=== PATIENT | male | born 1945 | race Caucasian/White ===

== ENCOUNTER → 2017-05-23 13:34 | Outpatient (CLI) | payer MEDICARE, SELFPAY ==
[2017-05-23 13:39] LABS: Mucous, Urine 0 SEEN /hpf (<or=2+)
[2017-05-23 14:09] LABS: Color, Urine Yellow (Yellow); Glucose, Dipstick Normal (Normal); Ketone-Dipstick Negative (Negative); Leukocyte Esterase-Dipstick 500 /ul (Negative); Nitrite-Dipstick Negative (Negative); Occult Blood-Urine Negative /ul (Negative); Protein-Dipstick Negative (Negative); Specific Gravity, Urine 1.015 (1.002-1.030); Urine Bilirubin Dipstick Negative (Negative); Urine Clarity Sl. Cloudy (Clear); Urine Urobilinogen Normal (Normal)
[2017-05-23 14:16] LABS: Absolute Neutrophil Count 5.6 X10^3/uL (2.0-7.7); Basophil# 0.03 X10^3/uL; Basophil% 0.3 % (0-1); Eosinophil# 0.23 X10^3/uL; Eosinophils% 2.6 % (0-5); Hematocrit 45.5 % (40-54); Hemoglobin 14.6 g/dl (13.0-16.5); Lymphocyte % 23.5 % (19-41); Mean Corp Hgb Conc 32.1 g/gl (32-36); Mean Corpuscular Hgb 27.3 pg (27.0-32.0); Mean Corpuscular Volume 85.2 fL (80-94); Mean Platelet Vol. 10.6 fl (6.2-12.0); Monocyte# 0.91 X10^3/uL; Monocyte% 10.2 % (0-10); Neutrophil # 5.57 X10^3/uL (2.7-7.7); Neutrophil % 62.5 % (47-70); POSITIVE COUNT NO; POSITIVE DIFFERENTIAL NO; POSITIVE MORPHOLOGY NO; Platelet Count 250 K/mm3 (150-450); RBC Distribution Width CV 14.3 % (11.6-14.6); RBC Distribution Width SD 44.1 fl (35.1-43.9); Red Blood Count 5.34 M/mm3 (4.6-6.2); White Blood Count 8.9 K/mm3 (4.4-11.0)
[2017-05-23 14:18] LABS: Bacteria 4+ /hpf (None Seen); Red Blood Cells-Urine 0-5 SEEN /hpf (0-5); Squamous Epithelial Cells - UA 0-5 SEEN /hpf (0-5); White Blood Cells 10-25 SEEN /hpf (0-5)
[2017-05-23 14:24] LABS: ALB/GLOB Ratio 0.9 RATIO (0.9-2.4); AST(SGOT) 21 U/L (15-37); Alanine Aminotransfer ALT/SGPT 27 U/L (16-61); Albumin, Serum 3.7 g/dL (3.2-5.0); Alkaline Phosphatase 111 U/L (45-117); Anion Gap 8 (5-15); BUN 32 mg/dL (7-18); BUN/Creat Ratio 16.8 RATIO (10-20); Calcium,Total 9.2 mg/dL (8.5-10.1); Chloride 105 mmol/L (98-107); Cholesterol 145 mg/dL (200); EST Glomerular Filtration Rate 37 mL/min (>60); Est Glom Filt Rate - Afr Amer 45 mL/min (>60); Globulin 3.9 g/dL (2.2-4.2); Glucose 127 mg/dL (74-106); High Density Lipoprotein 52 mg/dL; Iron 89 ug/dL (65-175); Iron Binding Capacity,Total 414 ug/dL (250-450); Magnesium 2.1 mg/dL (1.6-2.6); Potassium 5.2 mmol/L (3.5-5.1); Protein, Total 7.6 g/dL (6.4-8.2); Sodium Level 139 mmol/L (136-145); Triglycerides 126 mg/dL; Very Low Density Lipoprotein 25 mg/dL (5-40)
[2017-05-23 14:30] LABS: Hemoglobin A1c 7.1 % (4.2-6.3)
[2017-05-23 14:32] LABS: Microalbumin,Random Urine 20.3 mg/L (NO RANGE EST.); Microalbumin:Creatinine Ratio 16.1 mg/g CRE (<30 mg/g CRE)
== END ==
PROVIDERS: Family Provider Family Medicine; PCP Family Medicine; Visit Provider Family Medicine
DX: E11.22 Type 2 diabetes mellitus with diabetic chronic kidney disease (principal); N18.9 Chronic kidney disease, unspecified; I25.10 Atherosclerotic heart disease of native coronary artery without angina pectoris; I25.83 Coronary atherosclerosis due to lipid rich plaque; D50.9 Iron deficiency anemia, unspecified; E11.8 Type 2 diabetes mellitus with unspecified complications; E78.2 Mixed hyperlipidemia; K21.9 Gastro-esophageal reflux disease without esophagitis; Z79.899 Other long term (current) drug therapy
CPT/HCPCS: 80053; 80061; 81001; 82043; 82570; 83036; 83540; 83550; 83735; 85025

== ENCOUNTER → 2017-07-21 09:59 | Outpatient (CLI) | payer MEDICARE, SELFPAY ==
--- NOTE | 2017-07-21 10:06 | US_ITS ---
STUDY: RENAL ULTRASOUND - COMPLETE REASON FOR EXAM: Male, 72 years old. Chronic renal failure. TECHNIQUE: Ultrasound evaluation of the kidneys was performed with real-time and static stubbs-scale imaging. COMPARISON: None. FINDINGS: RIGHT KIDNEY: Normal location of the right kidney, which is normal in size. The right kidney measures 10.6 x 5.3 x 4.9 cm. There is a normal cortex of the right kidney. The renal cortex measures 1.8 cm. There is no right renal mass or cyst. There are no right renal calculi. There is no right hydronephrosis. DISTAL RIGHT URETER: There is non-visualization of the distal right ureter. There is no demonstrated right ureterovesical junction calculus. There is no demonstrated right ureteral jet. LEFT KIDNEY: Normal location of the left kidney, which is normal in size. The left kidney measures 10.7 x 5.4 x 5.1 cm. There is a normal cortex of the left kidney. The renal cortex measures 1.8 cm. There is no left renal mass or cyst. There are no left renal calculi. There is no left hydronephrosis. DISTAL LEFT URETER: There is non-visualization of the distal left ureter. There is no demonstrated left ureterovesical junction calculus. There is no demonstrated left ureteral jet. BLADDER: The distended urinary bladder has a volume of 90 ml. There is a normal wall thickness of the distended urinary bladder. There is no demonstrated mass within the urinary bladder. There are no demonstrated bladder calculi. US/Kidney and Bladder IMPRESSION: Normal ultrasound of the kidneys and urinary bladder. Electronically Signed: Jalen Mathew MD at 13:09 EDT , Service support ,
== END ==
PROVIDERS: Family Provider Family Medicine; PCP Family Medicine; Visit Provider Internal Medicine Nephrology
DX: N18.3 Chronic kidney disease, stage 3 (moderate) (principal)
CPT/HCPCS: 76770

== ENCOUNTER 2017-12-14 09:22 | Emergency (ER) | payer MEDICARE, SELFPAY ==
[2017-12-14 09:23] VITALS: BP 162/92; PULSE 69; RESP 18; TEMP 36.4; O2SAT 97; BMI 23.5
--- NOTE | 2017-12-14 09:46 | ED.DCSUM_ITS ---
- ER Visit Summary Date of Service: 12/14/17 Chief Complaint: Nosebleed History of Present Illness: The patient is a [address] Newsome and Dr. Brasher. He is on Brilinta. He reports approximately 530 this morning he began having bleeding from the right side of his nose. He denies any injury. He r eports that he does seem to get nosebleeds in the fall when the heat is turned on. States his last nosebleed was approximately 2 weeks ago. He has never seen an research asst. Review of systems: General: No fever, chills, cold sweats. Cardiovascular: No chest pain, palpitations. Respiratory: No cough, shortness of breath, dyspnea on exertion. Gastrointestinal: No abdominal pain, nausea, vomiting, diarrhea, melena, or hematochezia. Genitourinary: No dysuria, frequency, hematuria. Skin: No rash. Neuro: No headache, numbness, weakness. Physical Examination: Vitals: Stable. Afebrile. General: Well-nourished and well-developed. Head: Normocephalic atraumatic. Nose: Fresh clot in the right nares. He has a deviated septum to the right with approximately 1 cm defect in his septum. Neck: Supple, no lymphadenopathy. No JVD. Nontender. Cardiovascular: Regular rate and rhythm. 2 out of 6 systolic murmur. Respiratory: No respiratory distress. Clear to auscultation bilaterally. Abdominal: Soft, nontender, nondistended, normal bowel sounds. No guarding, rebound, or peritoneal signs. Back: Nontender. Extremities: Nontender, no edema. Skin: Normal color, no rash. Neurologic: Alert and oriented ?3. Cranial nerves II through XII are intact. Normal strength and sensation. Psych: Normal affect. Emergency Department Course and Treatment: Patient had a cotton ball instilled with Prince mix in his right nares. This was removed. I was unable to visualize a source of bleeding. He had Vaseline gauze placed in his nares. He walked about the department had no bleeding anteriorly. However, when I looked in the oropharynx there clearly was blood dripping down. Patient had this removed. He had a 7.5 cm rapid Rhino placed and tolerated this well. He was treated with Keflex p.o. He has been observed following this and has had no further bleeding. Treatment Plan: The patient was discussed with Dr. Anurag Morrison who would like to see him in 4 days for removal of this. He was also discussed with Dr. Brasher who asked that he have his Brilinta stopped for a week. He will be discharged on Keflex. Return to the emergency department for any worsening symptoms. Disposition: To home in improved and stable condition. Impression: 1. Nosebleed, right nare. 2. Septal perforation. 3. Coagulopathy on Brilinta. This note was generated with [employer] dictation software. It may contain incorrect words, spelling, and punctuation that were not noted in review of the chart prior to signing ED Disposition - Plan for ED Patient: Disposition: Home or Assisted Living Chief Complaint: Nosebleed Instructions: Nosebleed Prescriptions: Cephalexin [Keflex] 500 mg PO TID #21 capsule Referrals: Anurag Monaco MD [STAFF PHYSICIAN] - 12/18/17 Additional Instructions: Don't take your brilinta for the next week.
[2017-12-14 11:46] VITALS: BP 159/80; PULSE 70; RESP 14; O2SAT 98
[2017-12-14] MEDS: Cephalexin 500 MG Capsule PO (11:57)
== END 2017-12-14 11:58 | disposition home or self-care (01) ==
LOC: ED 09:48
PROVIDERS: Emergency Provider Emergency Medicine; Family Provider Family Medicine; PCP Family Medicine
DX: R04.0 Epistaxis (principal); J34.2 Deviated nasal septum; R79.1 Abnormal coagulation profile; I25.10 Atherosclerotic heart disease of native coronary artery without angina pectoris; J44.9 Chronic obstructive pulmonary disease, unspecified; E11.9 Type 2 diabetes mellitus without complications; I10 Essential (primary) hypertension; Z79.02 Long term (current) use of antithrombotics/antiplatelets; Z79.82 Long term (current) use of aspirin; Z79.899 Other long term (current) drug therapy; Z95.1 Presence of aortocoronary bypass graft
CPT/HCPCS: 30901; 99283

== ENCOUNTER → 2018-02-08 08:08 | Outpatient (CLI) | payer MEDICARE, SELFPAY ==
[2018-02-08 09:12] LABS: Absolute Lymphocyte Count 2.27 X10^3/ul (0.83-4.51); Basophil# 0.03 X10^3/uL; Basophil% 0.4 % (0-1); Eosinophil# 0.37 X10^3/uL; Eosinophils% 4.3 % (0-5); Hematocrit 41.2 % (40-54); Hemoglobin 12.8 g/dl (13.0-16.5); Lymphocyte # 2.27 X10^3/ul (4.0); Lymphocyte % 26.6 % (19-41); Mean Corp Hgb Conc 31.1 g/gl (32-36); Mean Corpuscular Hgb 25.1 pg (27.0-32.0); Mean Corpuscular Volume 80.9 fL (80-94); Mean Platelet Vol. 9.4 fl (6.2-12.0); Monocyte# 0.83 X10^3/uL; Monocyte% 9.7 % (0-10); Neutrophil % 58.6 % (47-70); Platelet Count 280 K/mm3 (150-450); RBC Distribution Width CV 14.5 % (11.6-14.6); Red Blood Count 5.09 M/mm3 (4.6-6.2); White Blood Count 8.5 K/mm3 (4.4-11.0)
[2018-02-08 09:14] LABS: POSITIVE COUNT NO; POSITIVE DIFFERENTIAL NO; POSITIVE MORPHOLOGY NO
[2018-02-08 09:26] LABS: Protein, Urine (Random) 16.6 mg/dL (<11.9); Protein:Creat Ratio 105 mg/g CRE (0-200)
[2018-02-08 09:37] LABS: Albumin, Serum 3.6 g/dL (3.2-5.0); BUN 30 mg/dL (7-18); BUN/Creat Ratio 14.9 RATIO (10-20); Calcium,Total 8.8 mg/dL (8.5-10.1); Chloride 106 mmol/L (98-107); Creatinine, Serum 2.02 mg/dL (0.70-1.30); EST Glomerular Filtration Rate 34 mL/min (>60); Est Glom Filt Rate - Afr Amer 42 mL/min (>60); Glucose 127 mg/dL (74-106); Phosphorus 2.5 mg/dL (2.5-4.9); Potassium 4.8 mmol/L (3.5-5.1); Sodium Level 137 mmol/L (136-145)
[2018-02-08 09:41] LABS: PTHIN 145.8 pg/mL (18.4-80.1)
[2018-02-08 09:45] LABS: Vitamin D,25 Hydroxy 38.5 ng/mL (29.95-100.01)
== END ==
PROVIDERS: Family Provider Family Medicine; PCP Family Medicine; Referring Provider Internal Medicine Nephrology; Visit Provider Internal Medicine Nephrology
DX: N18.3 Chronic kidney disease, stage 3 (moderate) (principal); D50.9 Iron deficiency anemia, unspecified
CPT/HCPCS: 36415; 80069; 82306; 82570; 83970; 84156; 85025

== ENCOUNTER 2018-03-25 16:36 | Inpatient (IN) | payer MEDICARE, SELFPAY ==
[2018-03-25] VITALS (8 sets, daily range): BP systolic 138–174; BP diastolic 71–98; PULSE 56–75; RESP 14–22; TEMP 36.3–36.9; O2SAT 95–98; BMI 23.7; BMI 23.3; BMI 23.4
--- NOTE | 2018-03-25 17:16 | ED.VISSUMM ---
- ER Visit Summary Date of Service: 03/25/18 Chief Complaint: GI bleeding History of Present Illness: The patient is a 72 M who presents with lower GI bleeding that began this morning. Patient states he has had 6 episodes of blood in his stools today. Patient states the first 4 were dark blood in the last 2 were bright red blood. Patient denies any abdominal pain. Patient states he does feel lightheaded at times. Patient denies any urinary complaints. Patient states he had a colonoscopy done by Dr. Stein in the past which showed some polyps. Patient states he was able to remove some of the polyps. Patient did not want to have surgery at that time to have the rest of the polyps removed. Physical Examination: Vital signs are stable. Patient is afebrile. Patient is in no acute distress. Oral mucosa is pink and moist. Neck is supple. Trachea is midline. There is no JVD noted. Heart was regular rate and rhythm. Lungs are clear and equal bilateral. Abdomen is soft. Bowel sounds are normal. There is no tenderness. There is no guarding noted. Rectal exam showed good sphincter tone. There is dark stool noted on exam. Skin is warm dry. Cranial nerves II through XII are intact. There are no focal motor or sensory deficits noted. The remaining physical exam is within normal limits. Test Results: CBC showed a hemoglobin of 12.2. Basic metabolic profile showed a slightly elevated BUN of 28 and creatinine 1.81. This was stable compared to previous results. INR was 1.0. PTT was 30.6. Stool was positive for blood. Emergency Department Course and Treatment: Patient remained stable in the emergency department. Case was discussed with Dr. Damico. He is agreeable to admitting the patient here. Case was discussed with Dr. Henson. He will admit the patient to his service to the [facility] unit with telemetry. Patient understood and was agreeable with the plan. All questions were answered. Disposition: Admit to hospital Impression: Lower gastrointestinal bleeding This note was generated with [employer] dictation software. It may contain incorrect words, spelling, and punctuation that were not noted in review of the chart prior to signing ED Disposition - Plan for ED Patient: Disposition: Acute Care Hospital [facility] Diagnosis: Lower gastrointestinal bleeding Referrals: Marko Newsome MD [Primary Care Provider] -
--- NOTE | 2018-03-25 17:19 | ED.DCSUM_ITS ---
- ER Visit Summary Date of Service: 03/25/18 Chief Complaint: GI bleeding History of Present Illness: The patient is a 72 M who presents with lower GI bleeding that began this morning. Patient states he has had 6 episodes of blood in his stools today. Patient states the first 4 were dark blood in the last 2 were bright red blood. Patient denies any abdominal pain. Patient states he does feel lightheaded at times. Patient denies any urinary complaints. Patient states he had a colonoscopy done by Dr. Stein in the past which showed some polyps. Patient states he was able to remove some of the polyps. Patient did not want to have surgery at that time to have the rest of the polyps removed. Physical Examination: Vital signs are stable. Patient is afebrile. Patient is in no acute distress. Oral mucosa is pink and moist. Neck is supple. Trachea is midline. There is no JVD noted. Heart was regular rate and rhythm. Lungs are clear and equal bilateral. Abdomen is soft. Bowel sounds are normal. There is no tenderness. There is no guarding noted. Rectal exam showed good sphincter tone. There is dark stool noted on exam. Skin is warm dry. Cranial nerves II through XII are intact. There are no focal motor or sensory deficits noted. The remaining physical exam is within normal limits. Test Results: CBC showed a hemoglobin of 12.2. Basic metabolic profile showed a slightly elevated BUN of 28 and creatinine 1.81. This was stable compared to previous results. INR was 1.0. PTT was 30.6. Stool was positive for blood. Emergency Department Course and Treatment: Patient remained stable in the emergency department. Case was discussed with Dr. Damico. He is agreeable to admitting the patient here. Case was discussed with Dr. Henson. He will admit the patient to his service to the [facility] unit with telemetry. Patient understood and was agreeable with the plan. All questions were answered. Disposition: Admit to hospital Impression: Lower gastrointestinal bleeding This note was generated with [employer] dictation software. It may contain incorrect words, spelling, and punctuation that were not noted in review of the chart prior to signing ED Disposition - Plan for ED Patient: Disposition: Acute Care Hospital [facility] Diagnosis: Lower gastrointestinal bleeding Referrals: Marko Newsome MD [Primary Care Provider] -
[2018-03-25 17:32] LABS: Absolute Neutrophil Count 4.4 X10^3/uL (2.0-7.7); Basophil# 0.03 X10^3/uL; Basophil% 0.3 % (0-1); Eosinophils% 4.5 % (0-5); Hemoglobin 12.2 g/dl (13.0-16.5); Lymphocyte % 32.5 % (19-41); Mean Corp Hgb Conc 30.5 g/gl (32-36); Mean Corpuscular Hgb 24.4 pg (27.0-32.0); Mean Corpuscular Volume 80.2 fL (80-94); Monocyte# 1.11 X10^3/uL; Monocyte% 12.4 % (0-10); Neutrophil # 4.44 X10^3/uL (2.7-7.7); Neutrophil % 49.9 % (47-70); Platelet Count 256 K/mm3 (150-450); RBC Distribution Width CV 14.7 % (11.6-14.6); RBC Distribution Width SD 42.6 fl (35.1-43.9); Red Blood Count 4.99 M/mm3 (4.6-6.2); White Blood Count 8.9 K/mm3 (4.4-11.0)
[2018-03-25 17:34] LABS: POSITIVE COUNT NO; POSITIVE DIFFERENTIAL NO; POSITIVE MORPHOLOGY NO
[2018-03-25 17:45] LABS: Prothrombin Time (Protime)PT. 12.8 SECONDS (11.7-14.9)
[2018-03-25 17:46] LABS: Anion Gap 6 (5-15); BUN 28 mg/dL (7-18); BUN/Creat Ratio 15.5 RATIO (10-20); Calcium,Total 8.7 mg/dL (8.5-10.1); Chloride 107 mmol/L (98-107); Creatinine, Serum 1.81 mg/dL (0.70-1.30); EST Glomerular Filtration Rate 39 mL/min (>60); Est Glom Filt Rate - Afr Amer 47 mL/min (>60); Estimated Creatinine Clearance 34.64 ml/min; Glucose 104 mg/dL (74-106); Partial Thromboplast Time 30.6 Seconds (24.1-36.2); Potassium 4.2 mmol/L (3.5-5.1); Sodium Level 139 mmol/L (136-145)
--- NOTE | 2018-03-25 19:01 | HP.PCM_ITS ---
Problem List (1) Stage III chronic kidney disease Status: Chronic (2) Hyperlipidemia Status: Chronic (3) Hypertension Status: Chronic (4) Status post coronary artery bypass graft Status: Chronic (5) Coronary artery disease Status: Chronic (6) Lower gastrointestinal bleeding Status: Acute History of Present Illness Date of Admission: 03/25/18 Chief Complaint: Bleeding per rectum. The patient is a 72 year old M with past medical history as mentioned above presented to the emergency room because of rectal bleeding. His symptoms started today morning with rectal bleeding, initially was dark colored stool, later became bright red blood without stool, had 6 times of rectal bleeding, painless without any other associated symptoms and without aggravating or relieving factors. He denied abdominal pain, nausea or vomiting. He denied epistaxis, hemoptysis, hematemesis or hematuria. He mentioned that on December,, he came to the ER because of nosebleed and he had nasal packing at that time. Patient mentioned that he had colonoscopy 3 years ago and he was informed that he had colonic polyps some of them was removed and some of them left because they are large in size. He had a history of CAD status post CABG long time ago and he had another heart attack 3 years ago for which he had no interventions but he was started on Brilinta. He had a history of stage III chronic kidney disease and his creatinine has been around 1.5-2 mg/dL and it has been stable. He had a history of hypertension which has been under control with Norvasc and metoprolol. In the emergency department, his blood pressure was slightly elevated, other vital signs were stable. Routine blood work was remarkable for hemoglobin of 12.2 g/dL, BUN of 28 and creatinine of 1.81. Platelet count, pro time, INR and PTT were normal. Patient is being admitted for GI bleed for evaluation. Past Medical History Past Medical History (Chronic Problems): Chronic Problems Stage III chronic kidney disease (Chronic) Hyperlipidemia (Chronic) Hypertension (Chronic) Status post coronary artery bypass graft (Chronic) Coronary artery disease (Chronic) Allergies Penicillins Allergy (Verified 03/25/18 16:36) Unknown Home Medications: Ambulatory Orders Medication Instructions Recorded Aspirin E.C. [Ecotrin] 81 mg PO DAILY@0800 07/30/15 Atorvastatin Calcium [Lipitor] 40 mg PO QHS 07/30/15 Cholecalciferol (VIT D3) [Vitamin 1,000 unit PO LUNCH 07/30/15 D] Metoprolol Tartrate [Lopressor 50 mg PO BID 07/30/15 (Beta Dwain)] Multivitamin [Daily Multiple 1 each PO LUNCH 07/30/15 Vitamin] Co Q10 200 [Co Q-10] 100 mg PO QHS 03/25/18 Folic Acid 1 tab PO LUNCH 03/25/18 Lisinopril 5 mg PO DAILY 03/25/18 Ticagrelor [Brilinta] 90 mg PO BID 03/25/18 Surgical History: coronary bypass surgery Psychiatric History: No pertinent psych hx Lives: Spouse/ Significant Other Smoking Status: Former smoker Alcohol: None Drugs: None - *Family History Maternal History Items: No pertinent history, - - No family history of Colon cancer. Paternal History Items: No pertinent history Review of Systems Constitutional: Denies: Anorexia, Chills, Fever, Weakness Eyes: Denies: Blurred vision, Double vision, Drainage, Redness HEENT: Denies: Difficulty Hearing, Ear Pain, Eye Pain, Head Aches, Nasal bleeding, Nasal Congestion, Sore Throat Cardiovascular: Denies: Chest Pain, Chest Pressure, Chest Tightness, Edema, Heaviness, Light Headedness, Palpitations, Syncope Respiratory: Denies: Cough, Hemoptysis, Pleuritic Pain, Shortness of Breath, Sputum production, Wheezing Gastrointestinal: Reports: Hematochezia. Denies: Abdominal Pain, Constipation, Diarrhea, Hematemesis, Nausea, Vomiting Genitourinary: Denies: Dysuria, Frequency, Hematuria Musculoskeletal: Denies: Arm Pain, Back Pain, Foot Pain Skin: Denies: Dryness, Rash Neurological: Denies: Balance problems, Double vision, Change in Speech, Slurred speech, Confusion, Focal weakness, Headaches, Incoordination Psychiatric: Denies: Anxiety, Depression Endocrine: Denies: Change in Body Habitus, Polydipsia VTE Information - Inpt Only VTE Present on Admission: No VTE Mechan Device Prophylaxis: SCD's VTE Pharm Prophylaxis ordered?: No Patient Problems: Active and Suspected Problems Lower gastrointestinal bleeding (Acute) - Physical Exam General: Alert, Oriented x3, Cooperative, No apparent distress HEENT: Atraumatic, PERRLA, EOMI, Normocephalic Oral: Moist Mucosa, No Gingival or Mucosal Lesions/ Ulcerations Neck: Supple, No JVD, Negative Carotid Bruits, Trachea Midline, Thyroid Normal S ize and Texture Lungs: Clear to auscultation, No rhonchi, No wheeze, No rales, Diminished Cardiovascular: Regular rate, Regular Rhythm, Normal S1, Normal S2, PMI Normal Abdomen: Bowel Sounds Present, Soft, Non Tender, Non-Distended, No Hepato- splenomegaly Extremities: No clubbing, No cyanosis, No edema Skin: No rashes, No breakdown Lymphatic: No Cervical, Supraclavicular, or Inguinal Adenopathy Neurological: Cranial nerves II-XII grossly intact, Motor Exam 5/5 strength throughout Psych/Mental Status: Normal Affect, Appropriate, Alert and oriented to time, place, person, mood and affect Vital Signs Temp Pulse Resp BP Pulse Ox 97.4 F L 71 20 H 171/90 H 95 03/25/18 16:36 03/25/18 18:53 03/25/18 18:53 03/25/18 18:53 03/25/18 18:53 Oxygen Delivery Method Room Air Weight: 156 lb 1.396 oz Body Mass Index (BMI) 23.7 Microbiology Past 72 Hours 03/25/18 17:22 Stool Occult Blood (PAUL) - Final Stool Occult Blood Positive Laboratory Tests Past 24 Hrs 03/25/18 03/25/18 03/25/18 17:00 17:00 17:00 WBC 8.9 RBC 4.99 Hgb 12.2 L Hct 40.0 MCV 80.2 MCH 24.4 L MCHC 30.5 L RDW 14.7 H RDW Differential 42.6 Plt Count 256 MPV 10.0 Immature Gran % (Auto) 0.400 Neut % (Auto) 49.9 Lymph % (Auto) 32.5 [place] % (Auto) 12.4 H Eos % (Auto) 4.5 Baso % (Auto) 0.3 Absolute Neuts (auto) 4.4 Absolute Lymphs (auto) 2.90 Total Counted Not Reportable PT 12.8 INR 1.0 APTT 30.6 Sodium 139 Potassium 4.2 Chloride 107 Carbon Dioxide 26.0 Anion Gap 6 BUN 28 H Creatinine 1.81 H Estim Creat Clear Calc 34.64 Est GFR (MDRD) Af Amer 47 L Est GFR (MDRD) Non-Af 39 L BUN/Creatinine Ratio 15.5 Glucose 104 Calcium 8.7 Assessment/Plan All Active Problems Lower gastrointestinal bleeding (Acute) This is a 72 years old male patient presented to the emergency room because of rectal bleeding and he is being admitted for GI bleed for evaluation. #1 GI bleed: Probably lower GI bleed. Hemoglobin and hematocrit are stable. Vital signs are stable. Patient had colonoscopy 3 years ago according to him and that showed polyps that was removed, some of them were large and were not removed. Pro time and INR are normal. Patient has been on aspirin and Brilinta. He had a recent history of nosebleeds that needed nasal packing. Plan: Admit to [facility] floor, telemetry monitoring, gentle IV fluids for hydration, H&H every 8 hours, repeat CBC and BMP tomorrow morning, hold aspirin and Brilinta, general surgery consult for colonoscopy, repeat CBC and BMP tomorrow morning, PT OT evaluation and treatment. #2 CAD status post CABG: Stable, denies any chest pain shortness of breath. Patient never had stents in his heart but for some reason, he has been on Brilinta. Plan to hold aspirin and Brilinta, continue metoprolol and lisinopril as well as statins. #3 stage III chronic kidney disease: Baseline creatinine has been around 1.5-2 mg/dL. Admission creatinine is 1.81, stable at baseline. Plan for gentle IV fluids for hydration, repeat BMP tomorrow morning. #4 hypertension: Blood pressure stable, continue lisinopril and metoprolol, start IV hydralazine as needed. #5 questionable history of type 2 diabetes mellitus: Diet-controlled. According to the patient, he never been on treatment for diabetes but he knows that he does have diabetes and it is diet controlled. Plan for Accu-Cheks, insulin sliding scale. #6 hyperlipidemia: Continue statins. #7 DVT prophylaxis: SCDs. This note was generated with [employer] dictation software. It may contain incorrect words, spelling, and punctuation that were not noted in checking the note before signing. Code Visit Inpatient E&M: 86571 Init Hosp L3
[2018-03-25] MEDS: hydrALAZINE 20 MG/ML Vial 10 MG IV (20:04)
[2018-03-25] MEDS: 0.9% Normal Saline 1,000 ML 75 ML IV (20:04)
[2018-03-25 20:51] LABS: Hematocrit 39.1 % (40-54); Hemoglobin 11.7 g/dl (13.0-16.5)
[2018-03-25] MEDS: Metoprolol Tartrate 50 MG Tablet PO (20:52)
[2018-03-25] MEDS: Atorvastatin Calcium 40 MG Tablet PO (20:52)
[2018-03-26] VITALS (12 sets, daily range): BP systolic 125–137; BP diastolic 79–85; PULSE 67–82; RESP 16–18; TEMP 36.3–37.1; O2SAT 94–98
[2018-03-26 00:42] LABS: Hemoglobin A1c 6.9 % (4.2-6.3)
[2018-03-26 06:09] LABS: Absolute Lymphocyte Count 2.11 X10^3/ul (0.83-4.51); Absolute Neutrophil Count 4.2 X10^3/uL (2.0-7.7); Basophil# 0.03 X10^3/uL; Basophil% 0.4 % (0-1); Eosinophil# 0.34 X10^3/uL; Eosinophils% 4.6 % (0-5); Hematocrit 37.6 % (40-54); Hemoglobin 11.6 g/dl (13.0-16.5); Lymphocyte # 2.11 X10^3/ul (4.0); Lymphocyte % 28.4 % (19-41); Mean Corp Hgb Conc 30.9 g/gl (32-36); Mean Corpuscular Hgb 24.6 pg (27.0-32.0); Mean Corpuscular Volume 79.7 fL (80-94); Mean Platelet Vol. 10.4 fl (6.2-12.0); Monocyte# 0.73 X10^3/uL; Monocyte% 9.8 % (0-10); Neutrophil % 56.5 % (47-70); Platelet Count 236 K/mm3 (150-450); RBC Distribution Width CV 14.7 % (11.6-14.6); RBC Distribution Width SD 41.9 fl (35.1-43.9); Red Blood Count 4.72 M/mm3 (4.6-6.2); White Blood Count 7.4 K/mm3 (4.4-11.0)
[2018-03-26 06:22] LABS: Anion Gap 8 (5-15); BUN 21 mg/dL (7-18); BUN/Creat Ratio 13.9 RATIO (10-20); Calcium,Total 8.6 mg/dL (8.5-10.1); Chloride 111 mmol/L (98-107); Creatinine, Serum 1.51 mg/dL (0.70-1.30); EST Glomerular Filtration Rate 48 mL/min (>60); Est Glom Filt Rate - Afr Amer 58 mL/min (>60); Estimated Creatinine Clearance 40.13 ml/min; Glucose 96 mg/dL (74-106); Potassium 4.5 mmol/L (3.5-5.1); Sodium Level 142 mmol/L (136-145)
[2018-03-26 07:04] LABS: POSITIVE COUNT NO; POSITIVE DIFFERENTIAL NO; POSITIVE MORPHOLOGY NO
[2018-03-26] MEDS: Metoprolol Tartrate 50 MG Tablet PO ×2 (09:09→22:39)
[2018-03-26] MEDS: 0.9% Normal Saline 1,000 ML 75 ML IV ×2 (09:09→22:32)
[2018-03-26] MEDS: Lisinopril 5 MG Tablet PO (09:10)
--- NOTE | 2018-03-26 10:27 | PN_ITS ---
Patient Problems: Active and Suspected Problems Lower gastrointestinal bleeding (Acute) Subjective: Chief complaint: Follow-up after admission for lower GI bleed. Patient seen and examined he no acute events overnight. He had 2 episodes of rectal bleeding last night and this morning, still bright red blood but lesser amount. Denied significant abdominal pain, nausea or vomiting. His vital signs are stable. - Physical Exam General: Alert, Oriented x3, Cooperative, No apparent distress HEENT: Atraumatic, PERRLA, EOMI, Normocephalic Oral: Moist Mucosa, No Gingival or Mucosal Lesions/ Ulcerations Neck: Supple, No JVD, Negative Carotid Bruits, Trachea Midline, Thyroid Normal Size and Texture Lungs: Clear to auscultation, No rhonchi, No wheeze, No rales, Diminished Cardiovascular: Regular rate, Regular Rhythm, Normal S1, Normal S2, PMI Normal Abdomen: Bowel Sounds Present, Soft, Non Tender, Non-Distended, No Hepato- splenomegaly Extremities: No clubbing, No cyanosis, No edema Skin: No rashes, No breakdown Lymphatic: No Cervical, Supraclavicular, or Inguinal Adenopathy Neurological: Cranial nerves II-XII grossly intact, Neuro grossly intact Psych/Mental Status: Normal Affect, Appropriate, Alert and oriented to time, place, person, mood and affect Vital Signs Temp Pulse Resp BP Pulse Ox 97.8 F 70 16 134/80 H 97 03/26/18 08:49 03/26/18 09:09 03/26/18 08:49 03/26/18 08:49 03/26/18 08:49 Oxygen Delivery Method Room Air Weight: 151 lb 7.321 oz Body Mass Index (BMI) 23.3 Intake and Output for Last 24 Hours 03/24/18 03/25/18 03/26/18 23:59 23:59 23:59 Intake Total 1351 / 1351 Output Total 950 / 950 Balance 401 / 401 Microbiology Past 72 Hours 03/25/18 17:22 Stool Occult Blood (PAUL) - Final Stool Occult Blood Positive Laboratory Tests Past 24 Hrs 03/25/18 03/25/18 03/25/18 17:00 17:00 17:00 WBC 8.9 RBC 4.99 Hgb 12.2 L Hct 40.0 MCV 80.2 MCH 24.4 L MCHC 30.5 L RDW 14.7 H RDW Differential 42.6 Plt Count 256 MPV 10.0 Immature Gran % (Auto) 0.400 Neut % (Auto) 49.9 Lymph % (Auto) 32.5 [place] % (Auto) 12.4 H Eos % (Auto) 4.5 Baso % (Auto) 0.3 Absolute Neuts (auto) 4.4 Absolute Lymphs (auto) 2.90 Total Counted Not Reportable PT 12.8 INR 1.0 APTT 30.6 Sodium 139 Potassium 4.2 Chloride 107 Carbon Dioxide 26.0 Anion Gap 6 BUN 28 H Creatinine 1.81 H Estim Creat Clear Calc 34.64 Est GFR (MDRD) Af Amer 47 L Est GFR (MDRD) Non-Af 39 L BUN/Creatinine Ratio 15.5 Glucose 104 Hemoglobin A1c Calcium 8.7 03/25/18 03/25/18 03/26/18 20:30 20:30 05:24 WBC 7.4 RBC 4.72 Hgb 11.7 L 11.6 L Hct 39.1 L 37.6 L MCV 79.7 L MCH 24.6 L MCHC 30.9 L RDW 14.7 H RDW Differential 41.9 Plt Count 236 MPV 10.4 Immature Gran % (Auto) 0.300 Neut % (Auto) 56.5 Lymph % (Auto) 28.4 [place] % (Auto) 9.8 Eos % (Auto) 4.6 Baso % (Auto) 0.4 Absolute Neuts (auto) 4.2 Absolute Lymphs (auto) 2.11 Total Counted Not Reportable PT INR APTT Sodium Potassium Chloride Carbon Dioxide Anion Gap BUN Creatinine Estim Creat Clear Calc Est GFR (MDRD) Af Amer Est GFR (MDRD) Non-Af BUN/Creatinine Ratio Glucose Hemoglobin A1c 6.9 H Calcium 03/26/18 05:24 WBC RBC Hgb Hct MCV MCH MCHC RDW RDW Differential Plt Count MPV Immature Gran % (Auto) Neut % (Auto) Lymph % (Auto) [place] % (Auto) Eos % (Auto) Baso % (Auto) Absolute Neuts (auto) Absolute Lymphs (auto) Total Counted PT INR APTT Sodium 142 Potassium 4.5 Chloride 111 H Carbon Dioxide 23.0 Anion Gap 8 BUN 21 H Creatinine 1.51 H Estim Creat Clear Calc 40.13 Est GFR (MDRD) Af Amer 58 L Est GFR (MDRD) Non-Af 48 L BUN/Creatinine Ratio 13.9 Glucose 96 Hemoglobin A1c Calcium 8.6 Medical Necessity - Tobacco Use Smoking Status: Former smoker Assessment/Plan All Active Problems Lower gastrointestinal bleeding (Acute) This is a 72 years old male patient presented to the emergency room because of rectal bleeding and he is being admitted for GI bleed for evaluation. #1 GI bleed: Probably lower GI bleed. Still having rectal bleeding, hemoglobin and hematocrit are stable. Hemoglobin came down from 12.2 g/dL on admission down to 11.6 this morning. Vital signs remained stable. Pro time and INR are normal. Aspirin and Brilinta held. Patient never had cardiac stents but not sure why he is on Brilinta. General surgery consulted, awaiting their recommendations. Plan to continue same treatment, repeat H&H tomorrow morning. #2 CAD status post CABG: Stable, denies any chest pain shortness of breath. Aspirin and Brilinta held as above. He is on statins, metoprolol and lisinopril. #3 stage III chronic kidney disease: Baseline creatinine has been around 1.5-2 mg/dL. Admission creatinine is 1.81, today's creatinine is 1.51, stable at baseline. #4 hypertension: Blood pressure improved, continue lisinopril and metoprolol, continue IV hydralazine as needed. #5 questionable history of type 2 diabetes mellitus: Diet-controlled. Blood sugar has been stable. Plan to continue Accu-Cheks and sliding scale. #6 hyperlipidemia: Continue statins. #7 DVT prophylaxis: SCDs. This note was generated with [employer] dictation software. It may contain incorrect words, spelling, and punctuation that were not noted in checking the note before signing. Code Visit Inpatient E&M: 14696 Subs Hosp L2
--- NOTE | 2018-03-26 11:15 | CASEMGMT ---
THIAGO SOLIS Face to Face with patient for initial transition planning/care coordination assessment. RN CM introduced self and role at [facility]. Patient lying in bed, alert and oriented. Patient willing to participate in assessment and is able to answer all questions appropriately. Care providers, pharmacy, and demographics verified. Patient wishes to discharge home, denies need for home health at this time. Patient states he has no further needs or concerns at this time. CM to follow for discharge planning needs that may arise. PCP: [facility] Specialists: Surjit route sales delivery driver. Patient states he sees first aid trainer on [place] but does not remember name. Preferred Pharmacy: [facility] Insurance: youcalc Prescription Benefit: yes Living Will/HPOA: None LNOK: , son Living Arrangements: Patient lives with in 2 story home. Patient states he is independent at home and able to navigate stairs. Transportation: Self or DME/HHC: Patient states he has BP cuff and pulse oximeter at home. Denies home oxygen, bipap, cpap, or nebulizer. No history of HHC or SNF. Disposition Plan: Patient to discharge home with family support and follow-up plans in place. Cary MCKEON, RN, CM
--- NOTE | 2018-03-26 11:37 | PCM.CONS.GEN ---
Problem List (1) Lower gastrointestinal bleeding Status: Acute Reason for Consult Date of Consultation: 03/26/18 History of Present Illness: The patient is a 72 year old M with past medical history as mentioned above presented to the emergency room because of rectal bleeding. His symptoms started yesterday morning with rectal bleeding, initially was dark colored stool, later became bright red blood without stool, had 6 times of rectal bleeding, painless without any other associated symptoms and without aggravating or relieving factors. He denied abdominal pain, nausea or vomiting. He denied epistaxis, hemoptysis, hematemesis or hematuria. He mentioned that on December,, he came to the ER because of nosebleed and he had nasal packing at that time. Patient mentioned that he had colonoscopy 3 years ago and he was informed that he had colonic polyps some of them was removed and some of them left because they are large in size. He had a history of CAD status post CABG long time ago and he had another heart attack 3 years ago for which he had no interventions but he was started on Brilinta. He had a history of stage III chronic kidney disease and his creatinine has been around 1.5-2 mg/dL and it has been stable. He had a history of hypertension which has been under control with Norvasc and metoprolol. In the emergency department, his blood pressure was slightly elevated, other vital signs were stable. Routine blood work was remarkable for hemoglobin of 12.2 g/dL, BUN of 28 and creatinine of 1.81. Platelet count, pro time, INR and PTT were normal Since being in the hospital he has had 2 other episodes of rectal bleeding mostly dark in nature no reported clots. He is not complaining of any abdominal pain he has no nausea or vomiting. He does report that his colonoscopy 3 years ago showed some rather large polyps which were going to have to be surgically removed but he had a subsequent IN and was lost in follow-up. Past Medical History Past Medical History (Chronic Problems): Chronic Problems Stage III chronic kidney disease (Chronic) Hyperlipidemia (Chronic) Hypertension (Chronic) Status post coronary artery bypass graft (Chronic) Coronary artery disease (Chronic) Allergies Penicillins Allergy (Verified 03/25/18 16:36) Unknown Home Medications: Ambulatory Orders Medication Instructions Recorded Aspirin E.C. [Ecotrin] 81 mg PO DAILY@0800 07/30/15 Atorvastatin Calcium [Lipitor] 40 mg PO QHS 07/30/15 Cholecalciferol (VIT D3) [Vitamin 1,000 unit PO LUNCH 07/30/15 D] Metoprolol Tartrate [Lopressor 50 mg PO BID 07/30/15 (Beta Dwain)] Multivitamin [Daily Multiple 1 each PO LUNCH 07/30/15 Vitamin] Co Q10 200 [Co Q-10] 100 mg PO QHS 03/25/18 Folic Acid 1 tab PO LUNCH 03/25/18 Lisinopril 5 mg PO DAILY 03/25/18 Ticagrelor [Brilinta] 90 mg PO BID 03/25/18 Surgical History: coronary bypass surgery Psychiatric History: No pertinent psych hx Lives: Spouse/ Significant Other Smoking Status: Former smoker Alcohol: None Drugs: None - *Family History Maternal History Items: No pertinent history, - - No family history of Colon cancer. Paternal History Items: No pertinent history Review of Systems Constitutional: Denies: Chills, Fever, Weight Change HEENT: Denies: Dysphasia, Ear Pain, Eye Pain, Head Aches, Hearing Changes, Sore Throat Cardiovascular: Denies: Chest Pain, Chest Pressure, Chest Tightness, Palpitations Respiratory: Denies: Cough, Hemoptysis, Shortness of breath at rest, Shortness of breath upon exertion, Wheezing Gastrointestinal: Reports: Hematochezia. Denies: Abdominal Pain, Constipation, Diarrhea, Nausea, Melena, Vomiting Genitourinary: Denies: Dysuria, Frequency, Hematuria, Urgency Musculoskeletal: Denies: Joint Pain Neurological: Denies: Change in Speech, Confusion, Numbness, Tingling, Seizures Patient Problems: Active and Suspected Problems Lower gastrointestinal bleeding (Acute) - Physical Exam General: Alert, Oriented x3 HEENT: Atraumatic, PERRLA, EOMI, Normocephalic Lungs: Clear to auscultation Cardiovascular: Regular rate, Regular Rhythm, No murmurs Abdomen: Bowel Sounds Present, Soft, Non Tender, Non-Distended Extremities: No clubbing, No cyanosis, No edema Skin: No rashes, No breakdown Vital Signs Temp Pulse Resp BP Pulse Ox 97.8 F 70 16 134/80 H 97 03/26/18 08:49 03/26/18 09:09 03/26/18 08:49 03/26/18 08:49 03/26/18 08:49 Oxygen Delivery Method Room Air Weight: 151 lb 7.321 oz Body Mass Index (BMI) 23.3 Intake and Output for Last 24 Hours 03/24/18 03/25/18 03/26/18 23:59 23:59 23:59 Intake Total 1351 / 1351 Output Total 950 / 950 Balance 401 / 401 Microbiology Past 72 Hours 03/25/18 17:22 Stool Occult Blood (PAUL) - Final Stool Occult Blood Positive Laboratory Tests Past 24 Hrs 03/25/18 03/25/18 03/25/18 17:00 17:00 17:00 WBC 8.9 RBC 4.99 Hgb 12.2 L Hct 40.0 MCV 80.2 MCH 24.4 L MCHC 30.5 L RDW 14.7 H RDW Differential 42.6 Plt Count 256 MPV 10.0 Immature Gran % (Auto) 0.400 Neut % (Auto) 49.9 Lymph % (Auto) 32.5 Mckinley % (Auto) 12.4 H Eos % (Auto) 4.5 Baso % (Auto) 0.3 Absolute Neuts (auto) 4.4 Absolute Lymphs (auto) 2.90 Total Counted Not Reportable PT 12.8 INR 1.0 APTT 30.6 Sodium 139 Potassium 4.2 Chloride 107 Carbon Dioxide 26.0 Anion Gap 6 BUN 28 H Creatinine 1.81 H Estim Creat Clear Calc 34.64 Est GFR (MDRD) Af Amer 47 L Est GFR (MDRD) Non-Af 39 L BUN/Creatinine Ratio 15.5 Glucose 104 Hemoglobin A1c Calcium 8.7 03/25/18 03/25/18 03/26/18 20:30 20:30 05:24 WBC 7.4 RBC 4.72 Hgb 11.7 L 11.6 L Hct 39.1 L 37.6 L MCV 79.7 L MCH 24.6 L MCHC 30.9 L RDW 14.7 H RDW Differential 41.9 Plt Count 236 MPV 10.4 Immature Gran % (Auto) 0.300 Neut % (Auto) 56.5 Lymph % (Auto) 28.4 Mckinley % (Auto) 9.8 Eos % (Auto) 4.6 Baso % (Auto) 0.4 Absolute Neuts (auto) 4.2 Absolute Lymphs (auto) 2.11 Total Counted Not Reportable PT INR APTT Sodium Potassium Chloride Carbon Dioxide Anion Gap BUN Creatinine Estim Creat Clear Calc Est GFR (MDRD) Af Amer Est GFR (MDRD) Non-Af BUN/Creatinine Ratio Glucose Hemoglobin A1c 6.9 H Calcium 03/26/18 05:24 WBC RBC Hgb Hct MCV MCH MCHC RDW RDW Differential Plt Count MPV Immature Gran % (Auto) Neut % (Auto) Lymph % (Auto) Mckinley % (Auto) Eos % (Auto) Baso % (Auto) Absolute Neuts (auto) Absolute Lymphs (auto) Total Counted PT INR APTT Sodium 142 Potassium 4.5 Chloride 111 H Carbon Dioxide 23.0 Anion Gap 8 BUN 21 H Creatinine 1.51 H Estim Creat Clear Calc 40.13 Est GFR (MDRD) Af Amer 58 L Est GFR (MDRD) Non-Af 48 L BUN/Creatinine Ratio 13.9 Glucose 96 Hemoglobin A1c Calcium 8.6 Assessment/Plan All Active Problems Lower gastrointestinal bleeding (Acute) My plan is to perform a colonoscopy on the patient. Patient understands that the risk are going to be bleeding possible injury to the colon. If we identify the polyps again I am going to marked them with clips so that we can plan a surgery to remove them. It would be highly unlikely that I will be able to be removing them. The big question is will he be able to be off his Brilinta and be a low enough risk for surgery here [facility]. We will be getting a contact with his motor coach chauffeur who is at the [facility] and more than likely will need to get a echocardiogram and possibly a nuclear med stress test on him.
[2018-03-26 12:01] LABS: Bedside Glucose 95 mg/dL (70-110)
[2018-03-26 16:36] LABS: Bedside Glucose 80 mg/dL (70-110)
[2018-03-26] MEDS: Electrolyte Solution/Peg's 4000 ML PO (16:39)
[2018-03-26] MEDS: Atorvastatin Calcium 40 MG Tablet PO (22:37)
[2018-03-26 23:06] LABS: Bedside Glucose 93 mg/dL (70-110)
[2018-03-27] VITALS (17 sets, daily range): BP systolic 88–146; BP diastolic 52–89; PULSE 61–93; RESP 14–24; TEMP 36.3–36.9; O2SAT 94–99; BMI 23.3
--- NOTE | 2018-03-27 05:00 | EKG12_ITS ---
Test Reason : AM EKG Blood Pressure : / mmHG Vent. Rate : 067 BPM Atrial Rate : 067 BPM P-R Int : 140 ms QRS Dur : 100 ms QT Int : 434 ms P-R-T Axes : 069 063 179 degrees QTc Int : 458 ms Normal sinus rhythm Nonspecific T wave abnormality Abnormal ECG Confirmed by ISIAH BISWAS, CYRUS ([id number]), editor publications JOYCE MARTI ([id number]) on 03/28/2018 10:21:02 AM Referred By: Meg Henson Confirmed By:CYRUS JOYCE MD
[2018-03-27 06:31] LABS: Bedside Glucose 65 mg/dL (70-110)
[2018-03-27 06:34] LABS: Hematocrit 36.3 % (40-54); Hemoglobin 11.2 g/dl (13.0-16.5)
[2018-03-27] MEDS: Glucagon 1 MG/ML Syringe (07:19)
--- NOTE | 2018-03-27 07:39 | RAD_ITS ---
STUDY: X-RAY - ABDOMEN/PELVIS REASON FOR EXAM: Male, 72 years old. Abdominal distention. TECHNIQUE: AP supine and upright views of the abdomen and pelvis. COMPARISON: None. FINDINGS: Normal visualized lung bases. There is an unremarkable bowel gas pattern. A metallic clip is seen in the rectosigmoid junction. The visualized liver, spleen and kidneys are grossly normal in size and morphology. Normal soft tissue structures. Normal visualized osseous structures. RAD/Abd Inc Decub and/or Erect IMPRESSION: A metallic clip is seen in the rectosigmoid junction. Electronically Signed: Sourav Carlisle MD at 13:06 EST , Service support ,
--- NOTE | 2018-03-27 07:39 | OP.ENDO_ITS ---
03/27/2018 Marko Newsome MD Re : Colonoscopy procedure for Ines Hodges Dear Dr. Newsome This procedure was performed on Tuesday, March 27, 2018. My impressions and recommendations are as follows: Impressions : - One 40 mm, recently bleeding polyp in the sigmoid colon. Clip was placed. It was at 25 cm from the anus. - The examination was otherwise normal. - No specimens collected. Recommendations : - Return patient to [facility] for ongoing care. - Clear liquid diet. - Continue present medications. - Repeat colonoscopy (date not yet determined) for surveillance. - Return to my office (date not yet determined). My findings are described in the full procedure note, which is enclosed. If I can be of further assistance, please feel free to contact me at Doctor phone number(s): , Fax: [phone], Work: . Sincerely, MD Arnulfo Putnam MD 03/27/2018 7:38:50 AM This report has been signed electronically.
--- NOTE | 2018-03-27 09:21 | PCM.PN.BLA ---
Progress Note Dr. Damico will plan to perform a laparoscopic sigmoidectomy tomorrow at 12:00 pm for a non-resectable polyp via colonoscopy. This procedure will be completed as an ERAS. I have spoke with Gregoria who will review ERAS protocol with the patient. I have spoke to pharmacy for pre-op antibiotics. I have also faxed to [facility] an order form for ERAS protocol. Pre-op oral antibiotic have been placed. Dr. Damico stated the patient does not need additional bowel prep for surgery tomorrow. He may stay on clear liquids until midnight.
--- NOTE | 2018-03-27 09:41 | PN_ITS ---
Patient Problems: Active and Suspected Problems Lower gastrointestinal bleeding (Acute) Subjective: Chief complaint: Follow-up after admission for lower GI bleed. Patient seen and examined. No acute events overnight. He underwent colonoscopy this morning, found to have large nonresectable polyp. He denied abdominal pain, nausea or vomiting. He is not sure if he still has rectal bleeding as he has been using bowel preparation. His vital signs are stable. - Physical Exam General: Alert, Oriented x3, Cooperative, No apparent distress HEENT: Atraumatic, PERRLA, EOMI, Normocephalic Oral: Moist Mucosa, No Gingival or Mucosal Lesions/ Ulcerations Neck: Supple, No JVD, Negative Carotid Bruits, Trachea Midline, Thyroid Normal Size and Texture Lungs: Clear to auscultation, Normal air movement, No rhonchi, No wheeze, No rales Cardiovascular: Regular rate, Regular Rhythm, Normal S1, Normal S2, No murmurs, PMI Normal Abdomen: Bowel Sounds Present, Soft, Non Tender, Non-Distended, No Hepato- splenomegaly Extremities: No clubbing, No cyanosis, No edema Skin: No rashes, No breakdown Lymphatic: No Cervical, Supraclavicular, or Inguinal Adenopathy Neurological: Cranial nerves II-XII grossly intact, Neuro grossly intact Psych/Mental Status: Normal Affect, Appropriate, Alert and oriented to time, place, person, mood and affect Vital Signs Temp Pulse Resp BP Pulse Ox 98.0 F 61 16 88/52 L 96 03/27/18 08:24 03/27/18 08:24 03/27/18 08:29 03/27/18 08:24 03/27/18 08:24 Oxygen Delivery Method Room Air Weight: 150 lb 2.157 oz Body Mass Index (BMI) 23.3 Intake and Output for Last 24 Hours 03/25/18 03/26/18 03/27/18 23:59 23:59 23:59 Intake Total 2302 / 2302 5400 / 5400 Output Total 1600 / 1600 Balance 702 / 702 5400 / 5400 Microbiology Past 72 Hours 03/25/18 17:22 Stool Occult Blood (PAUL) - Final Stool Occult Blood Positive Laboratory Tests Past 24 Hrs 03/27/18 05:15 Hgb 11.2 L Hct 36.3 L POC Glucose 03/27/18 03/26/18 03/26/18 06:22 22:35 16:21 POC Glucose 65 L 93 80 03/26/18 11:38 POC Glucose 95 Medical Necessity - Tobacco Use Smoking Status: Former smoker Assessment/Plan All Active Problems Lower gastrointestinal bleeding (Acute) This is a 72 years old male patient presented to the emergency room because of rectal bleeding and he is being admitted for GI bleed for evaluation. #1 GI bleed: Probably lower GI bleed. Status post colonoscopy, found to have large nonresectable polyp. His vital signs are stable. Hemoglobin and hematocrit are stable. Surgery is planning for laparoscopic sigmoidectomy tomorrow. Plan: Continue same treatment. #2 CAD status post CABG: Stable, denies any chest pain shortness of breath. Aspirin and Brilinta held as above. He is on statins, metoprolol and lisinopril. Will discuss with Dr. Brasher regarding stopping Brilinta as patient never had cardiac stents but he was placed on Brilinta for unknown reasons. #3 stage III chronic kidney disease: Baseline creatinine has been around 1.5-2 mg/dL. Admission creatinine is 1.81, yesterday's creatinine is 1.51, stable at baseline. #4 hypertension: Blood pressure stable , continue lisinopril and metoprolol, continue IV hydralazine as needed. #5 questionable history of type 2 diabetes mellitus: Diet-controlled. Blood sugar has been stable. Plan to continue Accu-Cheks and sliding scale. #6 hyperlipidemia: Continue statins. #7 DVT prophylaxis: SCDs. This note was generated with [employer] dictation software. It may contain incorrect words, spelling, and punctuation that were not noted in checking the note before signing. Code Visit Inpatient E&M: 86554 Subs Hosp L2
[2018-03-27] MEDS: Lisinopril 5 MG Tablet PO (10:28)
[2018-03-27] MEDS: Metoprolol Tartrate 50 MG Tablet PO ×2 (10:28→21:27)
[2018-03-27] MEDS: Ensure Surgery 237 ML LIQUID PO ×2 (12:23→15:03)
[2018-03-27] MEDS: metroNIDAZOLE 500 MG Tablet 1000 MG PO ×3 (12:24→23:44)
[2018-03-27 12:41] LABS: Bedside Glucose 70 mg/dL (70-110)
[2018-03-27 16:41] LABS: Bedside Glucose 149 mg/dL (70-110)
[2018-03-27] MEDS: 0.9% Normal Saline 1,000 ML 75 ML IV (20:24)
[2018-03-27] MEDS: Atorvastatin Calcium 40 MG Tablet PO (21:27)
[2018-03-28] VITALS (19 sets, daily range): BP systolic 111–150; BP diastolic 59–89; PULSE 57–88; RESP 16–18; TEMP 36.3–36.9; O2SAT 92–100; BMI 24.2; BMI 23.4
--- NOTE | 2018-03-28 | COL_PTH ---
PATIENT: KALLIE BETTENCOURT LOC: MS3 U#:[id number] AGE/SX: 72/M ROOM: [facility] [place]03/25/[address]: Dr. Meg Hesnon MD : 1945 BED: 1 DIS: 03/30/2018 SPEC #: [id number] RECD: 03/28/18 15:26 STATUS: GUERA REQ #: [id number] ROSEMARIE: 03/28/18 00:[address]: Arnulfo Damico DEPT: SURGICAL PATHOLOGY RECD BY: Akbar Cheung ENTERED: 03/29/18 08:14 SP TYPE: COLON OTHR DR: MD Dr. Meg Escobar MD Dr. Jeffrey Burkey, MD Tissues: A - Colon, NOS B - Colon, NOS C - Colon, NOS D - Colon Donuts E - Colon Donuts Procedures: Surgery Specimen Level III Surgery Specimen Level IV Surgery Specimen Level V Comments: @ Ordering doctor for SUIII edited from to DR.DPEABO Roland by ALISON at 03/29/18 140 @ Ordering doctor for SUIV edited from to DR.DPEABO Roland by ALISON at 03/29/18 140 @ Ordering doctor for SUV edited from to @ by ALISON at 03/29/18 140 @ Submitting doctor edited from to DR.DPEABO Asuncion ROSAS at 03/29/18 1409 HEADER OPERATION: Colonoscopy (MAC) PRE-OP DIAGNOSIS: Lower GI bleed TISSUE SUBMITTED: A - Sigmoid colon, double short suture - distal margin of colon, double long - base of polyp stalk, B - Additional distal margin (proximal rectum), short double - distal margin, C - Colon polyp, long single suture tavares mid stalk of polyp, D - Proximal donut, E - Distal donut MICROSCOPIC DIAGNOSIS A. Sigmoid colon, colectomy: Negative for adenomatous changes. Diverticulosis and diverticulitis. 38 lymph nodes with reactive changes. B. Additional distal margin proximal rectum: Segment of colon, no pathologic diagnosis. C. Colon polyp: Tubular adenoma with multifocal high grade dysplasia. See comment. D. Proximal donut: Colonic donut, no pathologic diagnosis. E. Distal donut: Colonic donut, no pathologic diagnosis. ALONSO:sarah 04/02/18 COMMENT C. The polyp surface shows extensive ulceration and associated inflammation. Multiple foci of pseudoinvasion are also noted. No definite invasive carcinoma is noted. MICROSCOPIC DESCRIPTION Slides are reviewed. GROSS DESCRIPTION A - Received in fixative is one container labeled with the patient's name and designated sigmoid colon, double short suture - distal margin, double long - base of polyp stalk. The specimen consists of a previously opened segment of colon with attached pericolonic adipose tissue measuring 17 cm in length. The specimen is oriented by a suture, double short suture - distal margin and double long marking the base of the polyp. More dictation will follow after overnight fixation. The distal resection margin is stapled and proximal resection margin is opened. A metallic clip is also noted distal to the suture. / SJ:rg 03/29/18 Suture area identifying base of polyp stalk is 3 cm away from the distal resection margin. No mucosal lesion is identified. The area of the base of the polyp also does not show any obvious lesion. Sections of the colon reveal multiple diverticula and a few of the diverticula appear to be ruptured and filled with fecal material. Some of them also appear to contain fecalith. Sections of the pericolonic adipose tissue reveal multiple lymph nodes. The largest lymph node measures 1 cm in greatest dimension. Lumpia Wrapper Maker sections are submitted as follows: 1 - proximal and distal resection margins, 2 - base of the polyp as identified by the suture, 2 - human resources hr representative section adjacent to the polyp base, 4-6 - diverticula, 7 - one bisected lymph node, 8 & 9 - multiple lymph nodes, 10 - one serially sectioned lymph node, 11-14 - each cassette with one bisected lymph node, 15-17 - each cassette with multiple lymph nodes. / SJ:rg 03/30/18 B - Received in fixative is one container labeled with the patient's name and designated additional distal margin proximal rectum, double short suture is distal margin. The specimen consists of a small segment of colon measuring 2.5 cm in length with attached pericolonic adipose tissue. The specimen is identified as double short - distal margin. No mucosal lesion is identified. Lumpia Wrapper Maker sections are submitted as follows: 1 - proximal and distal resection margins, proximal margin is inked black, 2 - human resources hr representative section from the other area. / :sarah 03/29/18 C - Received in fixative is one container labeled with the patient's name and designated colon polyp, long suture tavares mid stalk of polyp. The specimen consists of a piece of colon which predominantly consists of polyp. The polyp measures 3.5 x 2 x 1 cm and attached strip of colon measures 4.5 cm in length. A small piece of colonic adipose tissue is also noted. The piece of colon shows a staple line along its whole length. Sections of attached pericolonic adipose tissue do not reveal any obvious enlarged lymph node. Lumpia Wrapper Maker sections are submitted in four cassettes as follows: 1 - stalk of polyp identified by a suture, 2-4 - entire polyp. Cassette 4 also contains the pericolonic adipose tissue. / :sarah 03/29/18 D - Received in fixative is one container labeled with the patient's name and designated proximal donut. The specimen consists of pieces of colonic tissue measuring 4 x 1 x 0.5 cm and 1.5 x 0.5 x 0.2 cm. Multiple sutures are noted. Lumpia Wrapper Maker sections are submitted in one cassette. / :sarah 03/29/18 E - Received in fixative is one container labeled with the patient's name and designated distal donut. The specimen consists of a donut-shaped piece of colonic tissue measuring 1.5 x 1.5 x 1 cm. Multiple timo are noted. Lumpia Wrapper Maker sections are submitted in one cassette. / ALONSO:sarah 03/29/18 TC:1 CPT: 35683 x2, 35672, 74629 x2
[2018-03-28 00:06] LABS: Bedside Glucose 106 mg/dL (70-110)
[2018-03-28 07:07] LABS: Bedside Glucose 68 mg/dL (70-110)
[2018-03-28 07:20] LABS: Hematocrit 35.4 % (40-54); Hemoglobin 10.5 g/dl (13.0-16.5); Mean Corp Hgb Conc 29.7 g/gl (32-36); Platelet Count 219 K/mm3 (150-450); RBC Distribution Width CV 14.7 % (11.6-14.6); RBC Distribution Width SD 42.4 fl (35.1-43.9); Red Blood Count 4.37 M/mm3 (4.6-6.2); White Blood Count 6.7 K/mm3 (4.4-11.0)
[2018-03-28 07:40] LABS: Anion Gap 8 (5-15); BUN 15 mg/dL (7-18); BUN/Creat Ratio 10.6 RATIO (10-20); Calcium,Total 7.8 mg/dL (8.5-10.1); Chloride 114 mmol/L (98-107); Creatinine, Serum 1.42 mg/dL (0.70-1.30); EST Glomerular Filtration Rate 52 mL/min (>60); Est Glom Filt Rate - Afr Amer 63 mL/min (>60); Estimated Creatinine Clearance 42.67 ml/min; Glucose 79 mg/dL (74-106); Potassium 4.7 mmol/L (3.5-5.1); Sodium Level 142 mmol/L (136-145)
[2018-03-28] MEDS: Metoprolol Tartrate 50 MG Tablet PO ×2 (07:49→21:58)
[2018-03-28 07:55] LABS: Scan Indicated on CBC? Y/N NO
--- NOTE | 2018-03-28 08:58 | PN_ITS ---
Patient Problems: Active and Suspected Problems Lower gastrointestinal bleeding (Acute) Subjective: Chief complaint: Follow-up after admission for lower GI bleed, found to have large sigmoid polyp status post clipping, going for laparoscopic sigmoidectomy today. Patient seen and examined. No acute events overnight. Today, he has no more rectal bleeding. Denies abdominal pain. His vital signs are stable. - Physical Exam General: Alert, Oriented x3, Cooperative, No apparent distress HEENT: Atraumatic, PERRLA, EOMI, Normocephalic Oral: Moist Mucosa, No Gingival or Mucosal Lesions/ Ulcerations Neck: Supple, No JVD, Negative Carotid Bruits, Trachea Midline, Thyroid Normal Size and Texture Lungs: Clear to auscultation, No rhonchi, No wheeze, No rales, Diminished Cardiovascular: Regular rate, Regular Rhythm, Normal S1, Normal S2, PMI Normal Abdomen: Bowel Sounds Present, Soft, Non Tender, Non-Distended, No Hepato- splenomegaly Extremities: No clubbing, No cyanosis, No edema Skin: No rashes, No breakdown Lymphatic: No Cervical, Supraclavicular, or Inguinal Adenopathy Neurological: Cranial nerves II-XII grossly intact, Motor Exam 5/5 strength throughout Psych/Mental Status: Normal Affect, Appropriate, Alert and oriented to time, place, person, mood and affect Vital Signs Temp Pulse Resp BP Pulse Ox 98.2 F 66 18 150/77 H 98 03/28/18 08:08 03/28/18 08:08 03/28/18 08:08 03/28/18 08:08 03/28/18 08:08 Oxygen Delivery Method Room Air Weight: 154 lb 8.705 oz Body Mass Index (BMI) 24.2 Intake and Output for Last 24 Hours 03/26/18 03/27/18 03/28/18 23:59 23:59 23:59 Intake Total 2302 / 2302 6250 / 6250 450 / 450 Output Total 1600 / 1600 Balance 702 / 702 6250 / 6250 450 / 450 Microbiology Past 72 Hours 03/25/18 17:22 Stool Occult Blood (PAUL) - Final Stool Occult Blood Positive Laboratory Tests Past 24 Hrs 03/28/18 03/28/18 06:55 06:55 WBC 6.7 RBC 4.37 L Hgb 10.5 L Hct 35.4 L MCV 81.0 MCH 24.0 L MCHC 29.7 L RDW 14.7 H RDW Differential 42.4 Plt Count 219 MPV 10.0 Sodium 142 Potassium 4.7 Chloride 114 H Carbon Dioxide 20.0 L Anion Gap 8 BUN 15 Creatinine 1.42 H Estim Creat Clear Calc 42.67 Est GFR (MDRD) Af Amer 63 Est GFR (MDRD) Non-Af 52 L BUN/Creatinine Ratio 10.6 Glucose 79 Calcium 7.8 L POC Glucose 03/28/18 03/27/18 03/27/18 06:56 21:29 16:27 POC Glucose 68 L 106 149 H 03/27/18 12:16 POC Glucose 70 Medical Necessity - Tobacco Use Smoking Status: Former smoker Assessment/Plan All Active Problems Lower gastrointestinal bleeding (Acute) This is a 72 years old male patient presented to the emergency room because of rectal bleeding and he is being admitted for GI bleed for evaluation. #1 GI bleed: Probably lower GI bleed. Status post colonoscopy, found to have large nonresectable sigmoid polyp. His vital signs are stable. Hemoglobin and hematocrit are stable. Plan for laparoscopic sigmoidectomy today, repeat CBC and BMP tomorrow morning. #2 CAD status post CABG: Stable, denies any chest pain shortness of breath. He is on statins, metoprolol and lisinopril. I spoke to Dr. Brasher about Brilinta and he is in agreement to stop Brilinta for now at least for some time. #3 stage III chronic kidney disease: Baseline creatinine has been around 1.5-2 mg/dL. Admission creatinine is 1.81, today's creatinine is 1.42, stable at baseline. #4 hypertension: Blood pressure stable , continue lisinopril and metoprolol, continue IV hydralazine as needed. #5 questionable history of type 2 diabetes mellitus: Diet-controlled. Blood sugar has been low, down to high 60s. Plan to continue Accu-Cheks and sliding scale, change IV fluids to D5 normal saline. #6 hyperlipidemia: Continue statins. #7 DVT prophylaxis: SCDs. This note was generated with [employer] software. It may contain incorrect words, spelling, and punctuation that were not noted in checking the note before signing. Code Visit Inpatient E&M: 26856 Subs Hosp L2
[2018-03-28] MEDS: Ensure Surgery 237 ML LIQUID PO (09:19)
[2018-03-28] MEDS: Acetaminophen 500 MG Tablet 1000 MG PO ×2 (09:51→18:13)
[2018-03-28] MEDS: Gabapentin 600 MG Tablet PO (09:51)
[2018-03-28] MEDS: Dextrose 5%/0.9% NaCl 1,000 ML 75 ML IV (09:51)
[2018-03-28 10:36] LABS: Bedside Glucose 248 mg/dL (70-110)
[2018-03-28] MEDS: Magnesium Sulfate 4gm/100mL 4 GM/100 ML IV.SOLN. IV (10:46)
[2018-03-28] MEDS: Lactated Ringers 1,000 ML 40 ML IV ×2 (10:47→16:20)
--- NOTE | 2018-03-28 10:47 | NURSING ---
spoke to christiano in Rx to please send gentamycin and insulin pen to [facility] as well as the mag and other iv meds ordered for this noon surgery, the only med delivered to [facility] was clindamycin and that was sent w/pt to [facility], keny called in [facility] an updated
[2018-03-28] MEDS: Insulin Lispro 100 UNIT/ML INSULN.PEN SC ×2 (10:55→21:59)
[2018-03-28] MEDS: Lidocaine/D5W 2,000 MG/250 ML IV.SOLN 20.43 MG IV (11:29)
--- NOTE | 2018-03-28 11:42 | OP.PCM_ITS ---
Problem List (1) Lower gastrointestinal bleeding Status: Acute (2) Colon polyp Status: Acute Qualifiers: Colon polyp type: inflammatory Colon location: sigmoid Inflammatory colon polyp complication status: rectal bleeding Qualified Code(s): K51.411 - Inflammatory polyps of colon with rectal bleeding Report of Operation Date of Procedure: 03/28/18 Pre-Operative Diagnosis: 1. Lower GI bleed. 2. Inflammatory polyps causing lower GI bleed unresectable with endoscopy Post-Operative Diagnosis: Same Surgery/Procedure Performed:: Laparoscopic sigmoid colectomy Type of Anesthesia:: General Anesthesiologist: Jose Booth Specimen's removed: Sigmoid colon Drains: None Estimated Blood Loss (mL): 100 cc Fluids Replaced: 700 cc Description of Procedure: Patient was brought into the operating room. Placed in the supine position. Under excellent endotracheal intubation his legs were placed up in the stirrups her arms were properly padded and the same bag was deflated. Brito catheter was placed. The abdomen and peritoneum were sterilely prepped and draped in the usual fashion. Incision was made above the umbilicus varies needle was placed inside the abdomen the abdomen was insufflated to 15 torr. A Visiport #5 port was placed without difficulty. A right lower quadrant 10/12 trocar was placed in between the 2 was another #5 trocar placed both of these under direct visualization without injury to underlying structures. Patient was placed in the headdown and rotated to the left position I placed a suprapubic #5 trocar under direct visualization. I scored the peritoneum sigmoid colon in between the 2 tattooed areas of the sigmoid colon these were the areas that I knew that the polyp was located within. I created a window and then I dissected the lateral aspect of the sigmoid colon and identified by window and subsequently identified the ureter. I took the peritoneum down past the distal tattoo blue ink. Did this with the Enseal and I had excellent hemostasis. I transected the colon here with a 60 stapler. And then used the Enseal took down the rest of the mesentery to the proximal blue ink. Once I had this completed I made a Pfannenstiel incision in the lower abdomen placed a medium wound protector in the wound brought the colon out transected the colon and a Gwen clamp after clamping the descending colon with a shotted clamp. I created a pursestring suture with a 2-0 Prolene and placed a 29 anvil into the proximal sigmoid colon and tied this down. Dr. Fuentes opened the specimen for me and unfortunately the polyp stock was distal to my distal staple line. I opened up the rectum staple line and remove the polyp in its entirety and sent that to pathology as well. Once I knew that the rectal pouch was free of any follow-up I then used a 40 contour staple and re-stapled the rectal pouch. The rectum then was irrigated with 1000 cc of Betadine irrigation it was sequentially dilated from 29-33 mm with dilators. The stapler was then placed into the rectum and directed up to the stump the spike was opened and I connected the anvil to the spike with an audible click and brought the 2 down together. Once the blue line was with in the green stapler was fired I had both a proximal and distal ring. I placed 3 sutures of 3-0 silk to take off some of the tension and then I checked for airtightness twice and I had a good seal and no air leak was identified. I had excellent hemostasis throughout this. I got an accurate needle and sponge count I reapproximated the rectus abdominis muscle with 0 Vicryl. I then brought the Pfannenstiel fascia together with #1 PDS. I reinflated the abdomen the colon laid in a good position under no tension and good hemostasis was noted in the pelvis. I did a nerve block on both the right and left lateral rectus abdominis muscles and oblique muscles. This was under direct visualization. Trochars were removed. Accurate needle and sponge count were obtained. The 10/12 trocar was closed with a [id number] stitch of 0 Vicryl. Wounds were irrigated skin was brought together with deep dermal stitches of 3-0 Vicryl then running 4-0 Monocryl and trocar sites were brought together with interrupted 4-0 Monocryl. Steri-Strips are applied sterile dressings were applied and the patie nt tolerated the procedure well. Urine was clear yellow we had approximately 150 cc out - Admit VTE Documentation VTE Present on Admission: No VTE Mechan Device Prophylaxis: SCD's VTE Pharm Prophylaxis ordered?: No Reason prophylaxis not ordered:: Treatment Not Indicated
[2018-03-28] MEDS: Lubricating Jelly 60 GM Tube 30 GM TOPICAL (12:00)
[2018-03-28] MEDS: Bupivacaine 0.25% 30 ML Vial (13:00)
[2018-03-28] MEDS: BUPIVACAINE LIPOSOME/PF 20 ML VIAL OPERA.SITE (13:00)
[2018-03-28 14:46] LABS: Bedside Glucose 123 mg/dL (70-110)
--- NOTE | 2018-03-28 15:02 | NURSING ---
student nurses charting reviewed and use for educational learning only.
[2018-03-28 17:52] LABS: Bedside Glucose 147 mg/dL (70-110)
[2018-03-28] MEDS: Atorvastatin Calcium 40 MG Tablet PO (21:58)
[2018-03-28] MEDS: Docusate Sodium 100 MG Capsule PO (21:58)
[2018-03-28 22:16] LABS: Bedside Glucose 276 mg/dL (70-110)
[2018-03-29] VITALS (13 sets, daily range): BP systolic 109–133; BP diastolic 57–75; PULSE 56–68; RESP 16; TEMP 36.3–37.3; O2SAT 92–97
[2018-03-29] MEDS: Acetaminophen 500 MG Tablet 1000 MG PO ×4 (00:36→18:26)
[2018-03-29 05:43] LABS: Absolute Neutrophil Count 9.9 X10^3/uL (2.0-7.7); Basophil% 0.1 % (0-1); Hematocrit 33.1 % (40-54); Hemoglobin 9.9 g/dl (13.0-16.5); Lymphocyte % 8.1 % (19-41); Mean Corp Hgb Conc 29.9 g/gl (32-36); Mean Corpuscular Hgb 24.2 pg (27.0-32.0); Mean Corpuscular Volume 80.9 fL (80-94); Mean Platelet Vol. 10.2 fl (6.2-12.0); Monocyte% 7.5 % (0-10); Neutrophil # 9.93 X10^3/uL (2.7-7.7); Platelet Count 206 K/mm3 (150-450); RBC Distribution Width CV 14.8 % (11.6-14.6); RBC Distribution Width SD 42.6 fl (35.1-43.9); Red Blood Count 4.09 M/mm3 (4.6-6.2); White Blood Count 11.8 K/mm3 (4.4-11.0)
[2018-03-29 05:44] LABS: Absolute Lymphocyte Count 0.96 X10^3/ul (0.83-4.51); Basophil# 0.01 X10^3/uL; Lymphocyte # 0.96 X10^3/ul (4.0); Monocyte# 0.88 X10^3/uL
[2018-03-29 05:50] LABS: POSITIVE COUNT NO; POSITIVE DIFFERENTIAL NO; POSITIVE MORPHOLOGY NO
[2018-03-29 06:00] LABS: Anion Gap 9 (5-15); BUN 15 mg/dL (7-18); BUN/Creat Ratio 9.4 RATIO (10-20); Calcium,Total 7.6 mg/dL (8.5-10.1); Chloride 111 mmol/L (98-107); Creatinine, Serum 1.59 mg/dL (0.70-1.30); EST Glomerular Filtration Rate 45 mL/min (>60); Est Glom Filt Rate - Afr Amer 55 mL/min (>60); Estimated Creatinine Clearance 38.11 ml/min; Glucose 157 mg/dL (74-106); Potassium 4.5 mmol/L (3.5-5.1); Sodium Level 140 mmol/L (136-145)
[2018-03-29 07:06] LABS: Bedside Glucose 123 mg/dL (70-110)
[2018-03-29] MEDS: Metoprolol Tartrate 50 MG Tablet PO ×2 (08:54→21:11)
[2018-03-29] MEDS: Docusate Sodium 100 MG Capsule PO ×2 (08:54→21:12)
[2018-03-29] MEDS: Lisinopril 5 MG Tablet PO (08:56)
--- NOTE | 2018-03-29 09:02 | PCM.PROGNOTE ---
Patient Problems: Active and Suspected Problems Colon polyp (Acute) Lower gastrointestinal bleeding (Acute) Subjective: Chief complaint: Follow-up after admission for lower GI bleed secondary to large sigmoid polyps that was unresectable with colonoscopy, status post laparoscopic sigmoid colectomy.. Patient seen and examined. No acute events overnight. He denies any abdominal pain. Denied nausea vomiting. He is tolerating clear liquids. He had no flatus, no bowel movement. No more lower GI bleed. His vital signs are stable. - Physical Exam General: Alert, Oriented x3, Cooperative, No apparent distress HEENT: Atraumatic, PERRLA, EOMI, Normocephalic Oral: Moist Mucosa, No Gingival or Mucosal Lesions/ Ulcerations Neck: Supple, No JVD, Negative Carotid Bruits, Trachea Midline, Thyroid Normal Size and Texture Lungs: Clear to auscultation, No rhonchi, No wheeze, No rales, Diminished Cardiovascular: Regular rate, Regular Rhythm, Normal S1, Normal S2, PMI Normal Abdomen: Soft, Non Tender, Non-Distended, No Hepato-splenomegaly, Hypoactive Bowel Sounds Extremities: No clubbing, No cyanosis, No edema Skin: No rashes, No breakdown Lymphatic: No Cervical, Supraclavicular, or Inguinal Adenopathy Neurological: Cranial nerves II-XII grossly intact, Neuro grossly intact Psych/Mental Status: Normal Affect, Appropriate, Alert and oriented to time, place, person, mood and affect Vital Signs Temp Pulse Resp BP Pulse Ox 98.9 F 67 16 112/65 93 03/29/18 07:54 03/29/18 08:54 03/29/18 07:54 03/29/18 07:54 03/29/18 08:00 Oxygen Flow Rate (L/min) 5 Oxygen Delivery Method Room Air Weight: 154 lb 8.705 oz Body Mass Index (BMI) 24.2 Finger Stick Blood Glucose 123 Intake and Output for Last 24 Hours 03/27/18 03/28/18 03/29/18 23:59 23:59 23:59 Intake Total 6250 / 6250 1419 / 1419 1463 / 1463 Output Total 285 / 285 700 / 700 Balance 6250 / 6250 1134 / 1134 763 / 763 Laboratory Tests Past 24 Hrs 03/29/18 03/29/18 05:10 05:10 WBC 11.8 H RBC 4.09 L Hgb 9.9 L Hct 33.1 L MCV 80.9 MCH 24.2 L MCHC 29.9 L RDW 14.8 H RDW Differential 42.6 Plt Count 206 MPV 10.2 Immature Gran % (Auto) 0.300 Neut % (Auto) 84.0 H Lymph % (Auto) 8.1 L [place] % (Auto) 7.5 Eos % (Auto) 0.0 Baso % (Auto) 0.1 Absolute Neuts (auto) 9.9 H Absolute Lymphs (auto) 0.96 Total Counted Not Reportable Sodium 140 Potassium 4.5 Chloride 111 H Carbon Dioxide 20.0 L Anion Gap 9 BUN 15 Creatinine 1.59 H Estim Creat Clear Calc 38.11 Est GFR (MDRD) Af Amer 55 L Est GFR (MDRD) Non-Af 45 L BUN/Creatinine Ratio 9.4 L Glucose 157 H Calcium 7.6 L POC Glucose 03/29/18 03/28/18 03/28/18 06:59 21:55 17:15 POC Glucose 123 H 276 H 147 H 03/28/18 03/28/18 14:43 10:31 POC Glucose 123 H 248 H Medical Necessity - Tobacco Use Smoking Status: Former smoker Assessment/Plan All Active Problems Colon polyp (Acute) Lower gastrointestinal bleeding (Acute) This is a 72 years old male patient presented to the emergency room because of rectal bleeding and he is being admitted for GI bleed for evaluation. #1 GI bleed: Secondary to large inflammatory sigmoid polyps, status post laparoscopic sigmoid colectomy, postoperative day 1. Patient has no symptoms, no abdominal pain, no flatus or bowel movement. Denied nausea or vomiting. His vital signs are stable. Today's hemoglobin is 9.9, slightly dropped from yesterday which is likely because of hemodilution and probably blood loss during surgery. Has mild leukocytosis, afebrile. He is tolerating clear liquids. General surgeon on the case. Plan to advance diet according to general surgery, repeat CBC and BMP tomorrow morning, anticipate discharge home tomorrow morning. #2 CAD status post CABG: Stable, denies any chest pain shortness of breath. He is on statins, metoprolol and lisinopril. We can resume aspirin upon discharge. I spoke to Dr. Brasher about Brilinta and he is in agreement to stop Brilinta for now at least for some time. #3 stage III chronic kidney disease: Baseline creatinine has been around 1.5-2 mg/dL. Admission creatinine is 1.81, today's creatinine is 1.59, stable at baseline. #4 hypertension: Blood pressure stable , continue lisinopril and metoprolol, continue IV hydralazine as needed. #5 questionable history of type 2 diabetes mellitus: Diet-controlled. Blood sugar stabilized. He is only on sliding scale. #6 hyperlipidemia: Continue statins. #7 DVT prophylaxis: SCDs. This note was generated with [employer] software. It may contain incorrect words, spelling, and punctuation that were not noted in checking the note before signing. Code Visit Inpatient E&M: 53266 Subs Hosp L2
--- NOTE | 2018-03-29 09:45 | PN.SURG_ITS ---
Patient Problems: Active and Suspected Problems Colon polyp (Acute) Lower gastrointestinal bleeding (Acute) Subjective: Patient has had no flatus as of yet. His pain is well controlled. Sitting in a chair. Objective: Abdomen is soft dressings are dry hypoactive bowel sounds - Physical Exam Vital Signs Temp Pulse Resp BP Pulse Ox 98.9 F 67 16 112/65 93 03/29/18 07:54 03/29/18 08:54 03/29/18 07:54 03/29/18 07:54 03/29/18 08:00 Oxygen Flow Rate (L/min) 5 Oxygen Delivery Method Room Air Weight: 154 lb 8.705 oz Body Mass Index (BMI) 24.2 Finger Stick Blood Glucose 123 Intake and Output for Last 24 Hours 03/27/18 03/28/18 03/29/18 23:59 23:59 23:59 Intake Total 6250 / 6250 1419 / 1419 1463 / 1463 Output Total 285 / 285 700 / 700 Balance 6250 / 6250 1134 / 1134 763 / 763 Laboratory Tests Past 24 Hrs 03/29/18 03/29/18 05:10 05:10 WBC 11.8 H RBC 4.09 L Hgb 9.9 L Hct 33.1 L MCV 80.9 MCH 24.2 L MCHC 29.9 L RDW 14.8 H RDW Differential 42.6 Plt Count 206 MPV 10.2 Immature Gran % (Auto) 0.300 Neut % (Auto) 84.0 H Lymph % (Auto) 8.1 L [place] % (Auto) 7.5 Eos % (Auto) 0.0 Baso % (Auto) 0.1 Absolute Neuts (auto) 9.9 H Absolute Lymphs (auto) 0.96 Total Counted Not Reportable Sodium 140 Potassium 4.5 Chloride 111 H Carbon Dioxide 20.0 L Anion Gap 9 BUN 15 Creatinine 1.59 H Estim Creat Clear Calc 38.11 Est GFR (MDRD) Af Amer 55 L Est GFR (MDRD) Non-Af 45 L BUN/Creatinine Ratio 9.4 L Glucose 157 H Calcium 7.6 L POC Glucose 03/29/18 03/28/18 03/28/18 06:59 21:55 17:15 POC Glucose 123 H 276 H 147 H 03/28/18 03/28/18 14:43 10:31 POC Glucose 123 H 248 H Medical Necessity - Tobacco Use Smoking Status: Former smoker Assessment/Plan All Active Problems Colon polyp (Acute) Lower gastrointestinal bleeding (Acute) Postoperative day #1 Await GI function Hemoglobin appears stable at this point
[2018-03-29] MEDS: Insulin Lispro 100 UNIT/ML INSULN.PEN SC (11:04)
[2018-03-29 11:12] LABS: Bedside Glucose 171 mg/dL (70-110)
[2018-03-29 16:56] LABS: Bedside Glucose 128 mg/dL (70-110)
--- NOTE | 2018-03-29 17:42 | NURSING ---
pt had a loose bm with small amt of red blood in stool.
[2018-03-29] MEDS: Atorvastatin Calcium 40 MG Tablet PO (21:12)
[2018-03-30] VITALS (8 sets, daily range): BP systolic 110–144; BP diastolic 58–70; PULSE 54–64; RESP 16–18; TEMP 36.4–37; O2SAT 95–100
[2018-03-30 00:36] LABS: Bedside Glucose 109 mg/dL (70-110)
[2018-03-30] MEDS: Acetaminophen 500 MG Tablet 1000 MG PO ×2 (00:57→06:41)
[2018-03-30 06:11] LABS: Absolute Lymphocyte Count 2.17 X10^3/ul (0.83-4.51); Basophil# 0.01 X10^3/uL; Basophil% 0.1 % (0-1); Eosinophil# 0.11 X10^3/uL; Eosinophils% 1.2 % (0-5); Hematocrit 29.9 % (40-54); Hemoglobin 9.1 g/dl (13.0-16.5); Lymphocyte # 2.17 X10^3/ul (4.0); Lymphocyte % 23.4 % (19-41); Mean Corp Hgb Conc 30.4 g/gl (32-36); Mean Corpuscular Hgb 24.7 pg (27.0-32.0); Mean Platelet Vol. 10.4 fl (6.2-12.0); Monocyte# 0.91 X10^3/uL; Monocyte% 9.8 % (0-10); Neutrophil # 6.03 X10^3/uL (2.7-7.7); Neutrophil % 65.1 % (47-70); Platelet Count 203 K/mm3 (150-450); RBC Distribution Width CV 14.9 % (11.6-14.6); RBC Distribution Width SD 42.1 fl (35.1-43.9); Red Blood Count 3.69 M/mm3 (4.6-6.2); White Blood Count 9.3 K/mm3 (4.4-11.0)
[2018-03-30 06:13] LABS: Anion Gap 8 (5-15); BUN 16 mg/dL (7-18); BUN/Creat Ratio 9.2 RATIO (10-20); Calcium,Total 7.8 mg/dL (8.5-10.1); Chloride 111 mmol/L (98-107); Creatinine, Serum 1.74 mg/dL (0.70-1.30); EST Glomerular Filtration Rate 41 mL/min (>60); Est Glom Filt Rate - Afr Amer 50 mL/min (>60); Estimated Creatinine Clearance 34.82 ml/min; Glucose 85 mg/dL (74-106); Potassium 4.3 mmol/L (3.5-5.1); Sodium Level 139 mmol/L (136-145)
[2018-03-30 06:17] LABS: POSITIVE COUNT NO; POSITIVE DIFFERENTIAL NO; POSITIVE MORPHOLOGY NO
[2018-03-30 06:56] LABS: Bedside Glucose 87 mg/dL (70-110)
--- NOTE | 2018-03-30 07:31 | PCM.PN.SRG ---
Patient Problems: Active and Suspected Problems Colon polyp (Acute) Lower gastrointestinal bleeding (Acute) Subjective: Patient feels well. Feels a little sore from getting in and out of the bed but otherwise no real discomfort. He has had numerous bowel movements the first 1 was a little bloody and that everything has been clearing up. Like to go home. Objective: Abdomen is soft. Dressings are completely dry. He has active bowel sounds. - Physical Exam Vital Signs Temp Pulse Resp BP Pulse Ox 97.8 F 64 18 130/58 H 96 03/30/18 06:48 03/30/18 06:48 03/30/18 06:48 03/30/18 06:48 03/30/18 06:48 Oxygen Flow Rate (L/min) 5 Oxygen Delivery Method Room Air Weight: 154 lb 8.705 oz Body Mass Index (BMI) 24.2 Finger Stick Blood Glucose 123 Intake and Output for Last 24 Hours 03/28/18 03/29/18 03/30/18 23:59 23:59 23:59 Intake Total 1419 / 1419 3059 / 3059 1220 / 1220 Output Total 285 / 285 1200 / 1200 450 / 450 Balance 1134 / 1134 1859 / 1859 770 / 770 Laboratory Tests Past 24 Hrs 03/30/18 03/30/18 05:30 05:30 WBC 9.3 RBC 3.69 L Hgb 9.1 L Hct 29.9 L MCV 81.0 MCH 24.7 L MCHC 30.4 L RDW 14.9 H RDW Differential 42.1 Plt Count 203 MPV 10.4 Immature Gran % (Auto) 0.400 Neut % (Auto) 65.1 Lymph % (Auto) 23.4 [place] % (Auto) 9.8 Eos % (Auto) 1.2 Baso % (Auto) 0.1 Absolute Neuts (auto) 6.0 Absolute Lymphs (auto) 2.17 Total Counted Not Reportable Sodium 139 Potassium 4.3 Chloride 111 H Carbon Dioxide 20.0 L Anion Gap 8 BUN 16 Creatinine 1.74 H Estim Creat Clear Calc 34.82 Est GFR (MDRD) Af Amer 50 L Est GFR (MDRD) Non-Af 41 L BUN/Creatinine Ratio 9.2 L Glucose 85 Calcium 7.8 L POC Glucose 03/30/18 03/29/18 03/29/18 06:39 21:09 16:45 POC Glucose 87 109 128 H 03/29/18 11:01 POC Glucose 171 H Medical Necessity - Tobacco Use Smoking Status: Former smoker Assessment/Plan All Active Problems Colon polyp (Acute) Lower gastrointestinal bleeding (Acute) Postoperative day #2 Tolerating liquids diet will be advanced. Believe it is safe for him to be discharged home today.
--- NOTE | 2018-03-30 07:33 | DCINST_ITS ---
Discharge Diet: No Restrictions Discharge Activity: Return to Normal Activity, May Not Drive - while taking narcotic pain medications. Additional Activity Instructions:: Do not drive or work with heavy equipment or sign legal documents for 24 hours. Be aware that pain medications may cause nausea. You should typically eat light foods as you take your pain medications. Pain medications may also cause constipation, if you have difficulty with this please discuss with your doctor. Additional Dressing/Incision Instructions:: Leave the operative bandage on for 2 days. If a local anesthetic plug was placed in the anal area, try not to expel for 24-[address] dibucaine ointment on the perianal area as needed. Sitz baths twice daily and after bowel movements. Allergies/Adverse Reactions: Allergies Penicillins Allergy (Verified 03/25/18 16:36) Unknown Medications to take at Discharge Aspirin E.C. [Ecotrin] 81 mg PO DAILY@0800 07/30/15 Atorvastatin Calcium [Lipitor] 40 mg PO QHS 07/30/15 Cholecalciferol (VIT D3) [Vitamin D] 1,000 unit PO LUNCH 07/30/15 Metoprolol Tartrate [Lopressor (Beta Dwain)] 50 mg PO BID 07/30/15 Multivitamin [Daily Multiple Vitamin] 1 each PO LUNCH 07/30/15 Co Q10 200 [Co Q-10] 100 mg PO QHS 03/25/18 Folic Acid 1 tab PO LUNCH 03/25/18 Lisinopril 5 mg PO DAILY 03/25/18 Ticagrelor [Brilinta] 90 mg PO BID 03/25/18 Oxycodone HCl/Acetaminophen [Percocet 5/325] 1 - 2 tab PO Q4H PRN PRN 6 Days #30 tab 03/30/18 The following prescriptions were given: Oxycodone HCl/Acetaminophen [Percocet 5/325] 1 - 2 tab PO Q4H PRN PRN 6 Days #30 tab PRN Reason: Pain Primary Care Physician: Marko Newsome MD [Primary Care Provider] - Test Results: Test results from this visit will be discussed in further detail at your follow- up appointment, if applicable. Please Follow Up With: Arnulfo Damico MD - [phone] When: Plan to have a follow up approximately 7 days after surgery.
--- NOTE | 2018-03-30 08:20 | DCINST_ITS ---
- Discharge Diagnoses Current Active Problems: Current Active and Chronic Problems Colon polyp (Acute) Stage III chronic kidney disease (Chronic) Hyperlipidemia (Chronic) Hypertension (Chronic) Status post coronary artery bypass graft (Chronic) Coronary artery disease (Chronic) Lower gastrointestinal bleeding (Acute) You will use the following diet at home:: Cardiac Your food should be the consistency of: Regular Discharge Activity: Return to Normal Activity, May Not Drive - while taking narcotic pain medications. Weight Bearing Status: Weight bearing as tolerated Additional Activity Instructions:: Do not drive or work with heavy equipment or sign legal documents for 24 hours. Be aware that pain medications may cause nausea. You should typically eat light foods as you take your pain medications. Pain medications may also cause constipation, if you have difficulty with this please discuss with your doctor. Call your doctor if your incision/area has: Continuous Slow Oozing, Increased Pain/ Swelling, Increased Redness, Foul Smelling Discharge Call your doctor if you observe: Fever of 101 or Higher, Shortness of breath, Dizziness, Fainting spells, Chest pain, Increased palpitations (irregular heartbeat), Uncontrolled pain Additional Dressing/Incision Instructions:: Leave the operative bandage on for 2 days. If a local anesthetic plug was placed in the anal area, try not to expel for 24-[address] dibucaine ointment on the perianal area as needed. Sitz baths twice daily and after bowel movements. Allergies/Adverse Reactions: Allergies Penicillins Allergy (Verified 03/25/18 16:36) Unknown Medications to take at Discharge Aspirin E.C. [Ecotrin] 81 mg PO DAILY@0800 07/30/15 Atorvastatin Calcium [Lipitor] 40 mg PO QHS 07/30/15 Cholecalciferol (VIT D3) [Vitamin D3] 1,000 unit PO LUNCH 07/30/15 Metoprolol Tartrate [Lopressor (beta zuleika)] 50 mg PO BID 07/30/15 Multivitamin [Daily Multiple Vitamin] 1 each PO LUNCH 07/30/15 Co Q10 200 [Co Q-10] 100 mg PO QHS 03/25/18 Folic Acid 1 tab PO LUNCH 03/25/18 Lisinopril 5 mg PO DAILY 03/25/18 Oxycodone HCl/Acetaminophen [Percocet 5/325] 1 - 2 tab PO Q4H PRN PRN 6 Days #30 tab 03/30/18 The following prescriptions were given: Oxycodone HCl/Acetaminophen [Percocet 5/325] 1 - 2 tab PO Q4H PRN PRN 6 Days #30 tab PRN Reason: Pain Primary Care Physician: Marko Newsome MD [Primary Care Provider] - Please follow up with your Primary Care Physician in: 2 weeks. Test Results: Test results from this visit will be discussed in further detail at your follow- up appointment, if applicable. Please Follow Up With: Arnulfo Damico MD - [phone] When: Plan to have a follow up approximately 7 days after surgery. Please Follow Up With: Quinton Eddy MD When: as scheduled.
[2018-03-30] MEDS: Docusate Sodium 100 MG Capsule PO (09:47)
[2018-03-30] MEDS: Metoprolol Tartrate 50 MG Tablet PO (09:47)
[2018-03-30] MEDS: Lisinopril 5 MG Tablet PO (09:47)
--- NOTE | 2018-03-30 14:25 | DS.PCM_ITS ---
Discharge Date and Diagnosis Date of Admission: 03/25/18 Date of Discharge: 03/30/18 - Primary Discharge Diagnosis #1 lower GI bleed, secondary to large sigmoid polyp. #2 large inflammatory sigmoid polyp, status post laparoscopic sigmoid colectomy. #3 acute blood loss anemia, no blood transfusion required. - Secondary Discharge Diagnosis Chronic Problems Stage III chronic kidney disease (Chronic) Hyperlipidemia (Chronic) Hypertension (Chronic) Status post coronary artery bypass graft (Chronic) Coronary artery disease (Chronic) Hospital Course and Treatment Imaging Results: Clinical Impression(s) from Imaging Studies Abdomen X-Ray 03/27/18 07:39 IMPRESSION: A metallic clip is seen in the rectosigmoid junction. Electronically Signed: Sourav Carlisle MD at 13:06 EST , Service support , Dr. Damico, general surgery. Operations: - - Laparoscopic sigmoid colectomy. Procedures: Colonoscopy Summary of Care Provided: Patient seen and examined on the day of discharge and appeared to be stable to be discharged home. Again, he denies any abdominal pain, nausea or vomiting. He tolerated clear liquids. Later today, started on a regular diet and he did very well. His vital signs were stable. This is a 72 years old male patient presented to the emergency room because of rectal bleeding, underwent colonoscopy and he was found to have large sigmoid polyp that was nonresectable by colonoscopy, underwent laparoscopic sigmoid colectomy. #1 GI bleed: Secondary to large inflammatory sigmoid polyp that was nonresectable with colonoscopy, status post laparoscopic sigmoid colectomy. After surgery, patient had no more bleeding. His hemoglobin came down from 12.2 on admission down to 9.1 upon discharge but there was no indication for blood transfusion. His vital signs been stable throughout admission. He has no more rectal bleeding. #2 CAD status post CABG: Stable, continued on aspirin, statins and metoprolol as well as lisinopril. I discussed with Dr. Brasher about Brilinta and Dr. Brasher mentioned that patient had extensive CAD but never had cardiac interventions and he agreed to stop Brilinta for now and can be resumed in about 4-6 weeks to allow recovery and healing of surgery. #3 acute blood loss anemia: Secondary to GI bleed, hemoglobin remained above 9 g/dL., patient started bleeding and there was no indication for blood transfusion. #3 stage III chronic kidney disease: Baseline creatinine has been around 1.5-2 mg/dL, remained stable during this admission. #4 hypertension: Blood pressure stable , continued on lisinopril and metoprolol. #5 questionable history of type 2 diabetes mellitus: Diet-controlled. Blood sugar stable. Patient discharged home in a stable medical condition, discharged on Percocet as needed for pain, Brilinta discontinued, continued on aspirin, statins, beta- blockers and lisinopril, plan to follow-up with general surgery in 1 week, recommended follow-up with PCP in 2 weeks and follow-up with cardiology, Dr. Brasher, as scheduled. This note was generated with [employer] dictation software. It may contain incorrect words, spelling, and punctuation that were not noted in checking the note before signing. - Physical Exam General: Alert, Oriented x3, Cooperative, No apparent distress HEENT: Atraumatic, PERRLA, EOMI, Normocephalic Oral: Moist Mucosa, No Gingival or Mucosal Lesions/ Ulcerations Neck: Supple, No JVD, Negative Carotid Bruits, Trachea Midline, Thyroid Normal Size and Texture Lungs: Clear to auscultation, Normal air movement, No rhonchi, No wheeze Cardiovascular: Regular rate, Regular Rhythm, Normal S1, Normal S2, PMI Normal Abdomen: Bowel Sounds Present, Soft, Non Tender, Non-Distended, No Hepato- splenomegaly Extremities: No clubbing, No cyanosis, No edema Skin: No rashes, No breakdown Lymphatic: No Cervical, Supraclavicular, or Inguinal Adenopathy Neurological: Cranial nerves II-XII grossly intact, Motor Exam 5/5 strength throughout Psych/Mental Status: Normal Affect, Appropriate Vital Signs Temp Pulse Resp BP Pulse Ox 98.6 F 60 18 138/70 H 100 03/30/18 11:00 03/30/18 11:00 03/30/18 11:00 03/30/18 11:03/30/18 11:00 Oxygen Flow Rate (L/min) 5 Oxygen Delivery Method Room Air Weight: 154 lb 8.705 oz Body Mass Index (BMI) 24.2 Finger Stick Blood Glucose 123 Intake and Output for Last 24 Hours 03/28/18 03/29/18 03/30/18 23:59 23:59 23:59 Intake Total 1419 / 1419 3059 / 3059 1220 / 1220 Output Total 285 / 285 1200 / 1200 450 / 450 Balance 1134 / 1134 1859 / 1859 770 / 770 Laboratory Tests Past 24 Hrs 03/30/18 03/30/18 05:30 05:30 WBC 9.3 RBC 3.69 L Hgb 9.1 L Hct 29.9 L MCV 81.0 MCH 24.7 L MCHC 30.4 L RDW 14.9 H RDW Differential 42.1 Plt Count 203 MPV 10.4 Immature Gran % (Auto) 0.400 Neut % (Auto) 65.1 Lymph % (Auto) 23.4 [place] % (Auto) 9.8 Eos % (Auto) 1.2 Baso % (Auto) 0.1 Absolute Neuts (auto) 6.0 Absolute Lymphs (auto) 2.17 Total Counted Not Reportable Sodium 139 Potassium 4.3 Chloride 111 H Carbon Dioxide 20.0 L Anion Gap 8 BUN 16 Creatinine 1.74 H Estim Creat Clear Calc 34.82 Est GFR (MDRD) Af Amer 50 L Est GFR (MDRD) Non-Af 41 L BUN/Creatinine Ratio 9.2 L Glucose 85 Calcium 7.8 L POC Glucose 03/30/18 03/29/18 03/29/18 06:39 21:09 16:45 POC Glucose 87 109 128 H Discharge Diet: No Restrictions Discharge Activity: Return to Normal Activity, May Not Drive - while taking narcotic pain medications. Weight Bearing Status: Weight bearing as tolerated Additional Activity Instructions:: Do not drive or work with heavy equipment or sign legal documents for 24 hours. Be aware that pain medications may cause nausea. You should typically eat light foods as you take your pain medications. Pain medications may also cause constipation, if you have difficulty with this please discuss with your doctor. Call your doctor if your incision/area has: Continuous Slow Oozing, Increased Pain/ Swelling, Increased Redness, Foul Smelling Discharge Call your doctor if you observe: Fever of 101 or Higher, Shortness of breath, Dizziness, Fainting spells, Chest pain, Increased palpitations (irregular heartbeat), Uncontrolled pain Additional Dressing/Incision Instructions:: Leave the operative bandage on for 2 days. If a local anesthetic plug was placed in the anal area, try not to expel for 24-[address] dibucaine ointment on the perianal area as needed. Sitz baths twice daily and after bowel movements. Home Medications: Medications to take at Discharge Aspirin E.C. [Ecotrin] 81 mg PO DAILY@0800 07/30/15 Atorvastatin Calcium [Lipitor] 40 mg PO QHS 07/30/15 Cholecalciferol (VIT D3) [Vitamin D3] 1,000 unit PO LUNCH 07/30/15 Metoprolol Tartrate [Lopressor (beta zuleika)] 50 mg PO BID 07/30/15 Multivitamin [Daily Multiple Vitamin] 1 each PO LUNCH 07/30/15 Co Q10 200 [Co Q-10] 100 mg PO QHS 03/25/18 Folic Acid 1 tab PO LUNCH 03/25/18 Lisinopril 5 mg PO DAILY 03/25/18 Oxycodone HCl/Acetaminophen [Percocet 5/325] 1 - 2 tab PO Q4H PRN PRN 6 Days #30 tab 03/30/18 Following Prescrptions Were Given to Patient: Oxycodone HCl/Acetaminophen [Percocet 5/325] 1 - 2 tab PO Q4H PRN PRN 6 Days #30 tab PRN Reason: Pain Primary Care Physician: Marko Newsome MD [Primary Care Provider] - Please follow up with your Primary Care Physician in: 2 weeks. Please Follow Up With: Arnulfo Damico MD - [phone] When: Plan to have a follow up approximately 7 days after surgery. Please Follow Up With: Quinton Eddy MD When: as scheduled. Disposition: Home Minutes spent on discharge:: 32 Patient Condition:: Stable Medical Necessity - Tobacco Use Smoking Status: Former smoker Meaningful Use Info Meaningful Use Diagnoses (Choose all that apply): None applicable Code Visit Inpatient E&M: 13240 Disch Hosp
--- NOTE | 2018-04-02 13:18 | CASEMGMT ---
RN CM DC PHONE Call DC DATE: 03/30/18 DC Disposition: Home LACE/STRATA: 19/05 Intro role of CM to patient via phone. Pt states he does not have questions re: dc instructions or medications. Has f/u appointment next monday with Dr. Damico's office. Josselyn VELEZN RN ACM
== END 2018-03-30 11:20 | disposition home or self-care (01) | DRG 330 ==
LOC: ED 18:48 → MS3 19:06
PROVIDERS: Family Medicine; Physician Assistant; Surgery; Admitting Provider Hospitalist; Emergency Provider Emergency Medicine; Family Provider Family Medicine; PCP Family Medicine; Referring Provider Hospitalist; Visit Provider Hospitalist
PROC: 0DJD8ZZ Inspection of Lower Intestinal Tract, Via Natural or Artificial Opening Endoscopic (ICD-10-PCS; CPT 45378; principal; 2018-03-27 06:55)
PROC: 0DTN0ZZ Resection of Sigmoid Colon, Open Approach (ICD-10-PCS; CPT 44204; principal; 2018-03-28 11:35)
DX: K51.411 Inflammatory polyps of colon with rectal bleeding (principal); D62 Acute posthemorrhagic anemia; I25.10 Atherosclerotic heart disease of native coronary artery without angina pectoris; I12.9 Hypertensive chronic kidney disease with stage 1 through stage 4 chronic kidney disease, or unspecified chronic kidney disease; N18.3 Chronic kidney disease, stage 3 (moderate); E78.5 Hyperlipidemia, unspecified; E11.22 Type 2 diabetes mellitus with diabetic chronic kidney disease; Z79.899 Other long term (current) drug therapy; Z87.891 Personal history of nicotine dependence; Z86.010 Personal history of colon polyps; Z95.1 Presence of aortocoronary bypass graft; I25.2 Old myocardial infarction
CPT/HCPCS: 36415; 74019; 80048; 82274; 82962; 83036; 85014; 85018; 85025; 85027; 85610; 85730; 88304; 88305; 88307; 93005; 97161; 99283; J7030; J7050; J7120; A4216; C1760; J1610; J2405; J3490

== ENCOUNTER → 2018-04-11 13:07 | Outpatient (CLI) | payer MEDICARE, SELFPAY ==
[2018-03-28 03:53] VITALS: BMI 24.2
[2018-04-11 13:56] LABS: Absolute Lymphocyte Count 1.82 X10^3/ul (0.83-4.51); Absolute Neutrophil Count 7.5 X10^3/uL (2.0-7.7); Basophil# 0.02 X10^3/uL; Basophil% 0.2 % (0-1); Eosinophil# 0.26 X10^3/uL; Eosinophils% 2.4 % (0-5); Hematocrit 37.5 % (40-54); Hemoglobin 11.2 g/dl (13.0-16.5); Lymphocyte # 1.82 X10^3/ul (4.0); Lymphocyte % 16.9 % (19-41); Mean Corp Hgb Conc 29.9 g/gl (32-36); Mean Corpuscular Volume 80.3 fL (80-94); Mean Platelet Vol. 9.6 fl (6.2-12.0); Monocyte% 10.2 % (0-10); Neutrophil % 69.7 % (47-70); Platelet Count 376 K/mm3 (150-450); RBC Distribution Width CV 15.8 % (11.6-14.6); RBC Distribution Width SD 45.6 fl (35.1-43.9); Red Blood Count 4.67 M/mm3 (4.6-6.2); White Blood Count 10.8 K/mm3 (4.4-11.0)
[2018-04-11 14:03] LABS: POSITIVE COUNT NO; POSITIVE DIFFERENTIAL NO; POSITIVE MORPHOLOGY NO
[2018-04-11 14:04] LABS: Anion Gap 8 (5-15); BUN 18 mg/dL (7-18); BUN/Creat Ratio 11.8 RATIO (10-20); Calcium,Total 8.8 mg/dL (8.5-10.1); Chloride 107 mmol/L (98-107); Creatinine, Serum 1.53 mg/dL (0.70-1.30); EST Glomerular Filtration Rate 47 mL/min (>60); Est Glom Filt Rate - Afr Amer 57 mL/min (>60); Glucose 96 mg/dL (74-106); Potassium 3.9 mmol/L (3.5-5.1); Sodium Level 141 mmol/L (136-145)
== END ==
PROVIDERS: Family Provider Family Medicine; PCP Family Medicine; Referring Provider Family Medicine; Visit Provider Family Medicine
DX: N18.3 Chronic kidney disease, stage 3 (moderate) (principal); D64.9 Anemia, unspecified; K92.2 Gastrointestinal hemorrhage, unspecified
CPT/HCPCS: 80048; 85025

== ENCOUNTER → 2018-05-23 | Outpatient (CLI) | payer MEDICARE, SELFPAY ==
[2018-03-28 03:53] VITALS: BMI 24.2
[2018-05-23 13:49] LABS: Bacteria 0 SEEN /hpf (None Seen); Mucous, Urine 0 SEEN /hpf (<or=2+); Red Blood Cells-Urine 0 SEEN /hpf (0-5); White Blood Cells 0 SEEN /hpf (0-5)
[2018-05-23 14:04] LABS: Color, Urine Yellow (Yellow); Glucose, Dipstick Normal (Normal); Ketone-Dipstick Negative (Negative); Leukocyte Esterase-Dipstick Negative /ul (Negative); Nitrite-Dipstick Negative (Negative); Occult Blood-Urine Negative /ul (Negative); Protein-Dipstick Negative (Negative); Specific Gravity, Urine 1.015 (1.002-1.030); Urine Bilirubin Dipstick Negative (Negative); Urine Clarity Clear (Clear); Urine Urobilinogen Normal (Normal)
[2018-05-23 14:05] LABS: Absolute Lymphocyte Count 2.26 X10^3/ul (0.83-4.51); Absolute Neutrophil Count 5.2 X10^3/uL (2.0-7.7); Basophil# 0.03 X10^3/uL; Basophil% 0.3 % (0-1); Eosinophil# 0.33 X10^3/uL; Eosinophils% 3.8 % (0-5); Hematocrit 34.9 % (40-54); Hemoglobin 10.3 g/dl (13.0-16.5); Lymphocyte # 2.26 X10^3/ul (4.0); Lymphocyte % 26.1 % (19-41); Mean Corp Hgb Conc 29.5 g/gl (32-36); Mean Corpuscular Hgb 22.5 pg (27.0-32.0); Mean Corpuscular Volume 76.2 fL (80-94); Mean Platelet Vol. 10.4 fl (6.2-12.0); Monocyte% 9.2 % (0-10); Neutrophil % 60.3 % (47-70); Platelet Count 273 K/mm3 (150-450); RBC Distribution Width CV 16.2 % (11.6-14.6); RBC Distribution Width SD 43.7 fl (35.1-43.9); Red Blood Count 4.58 M/mm3 (4.6-6.2); White Blood Count 8.7 K/mm3 (4.4-11.0)
[2018-05-23 14:12] LABS: ALB/GLOB Ratio 1.1 RATIO (0.9-2.4); AST(SGOT) 21 U/L (15-37); Alanine Aminotransfer ALT/SGPT 27 U/L (16-61); Albumin, Serum 3.8 g/dL (3.2-5.0); Alkaline Phosphatase 84 U/L (45-117); Anion Gap 6 (5-15); BUN 33 mg/dL (7-18); BUN/Creat Ratio 16.7 RATIO (10-20); Calcium,Total 8.9 mg/dL (8.5-10.1); Chloride 108 mmol/L (98-107); Cholesterol 139 mg/dL (200); Creatinine, Serum 1.98 mg/dL (0.70-1.30); EST Glomerular Filtration Rate 35 mL/min (>60); Est Glom Filt Rate - Afr Amer 43 mL/min (>60); Globulin 3.4 g/dL (2.2-4.2); Glucose 120 mg/dL (74-106); High Density Lipoprotein 54 mg/dL; Iron Binding Capacity,Total 421 ug/dL (250-450); Magnesium 2.2 mg/dL (1.6-2.6); Potassium 4.7 mmol/L (3.5-5.1); Protein, Total 7.2 g/dL (6.4-8.2); Sodium Level 139 mmol/L (136-145); Squamous Epithelial Cells - UA 0-5 SEEN /hpf (0-5); Triglycerides 106 mg/dL; Very Low Density Lipoprotein 21 mg/dL (5-40)
[2018-05-23 14:14] LABS: POSITIVE COUNT NO; POSITIVE DIFFERENTIAL NO; POSITIVE MORPHOLOGY NO
[2018-05-24 08:55] LABS: Iron 31 ug/dL (65-175)
== END | disposition home or self-care (01) ==
PROVIDERS: Family Provider Family Medicine; PCP Family Medicine; Referring Provider Family Medicine; Visit Provider Family Medicine
DX: D50.9 Iron deficiency anemia, unspecified (principal); E11.8 Type 2 diabetes mellitus with unspecified complications; E87.2 Acidosis; I25.10 Atherosclerotic heart disease of native coronary artery without angina pectoris; I71.4 Abdominal aortic aneurysm, without rupture; K21.9 Gastro-esophageal reflux disease without esophagitis; Z79.899 Other long term (current) drug therapy
CPT/HCPCS: 80053; 80061; 81001; 82570; 83036; 83540; 83550; 83735; 85025

== ENCOUNTER → 2018-08-17 07:38 | Outpatient (CLI) | payer MEDICARE, SELFPAY ==
[2018-03-28 03:53] VITALS: BMI 24.2
[2018-08-17 08:22] LABS: Hematocrit 44.3 % (40-54); Hemoglobin 13.8 g/dl (13.0-16.5); Mean Corp Hgb Conc 31.2 g/gl (32-36); Mean Corpuscular Hgb 24.5 pg (27.0-32.0); Mean Corpuscular Volume 78.7 fL (80-94); Mean Platelet Vol. 9.6 fl (6.2-12.0); Platelet Count 332 K/mm3 (150-450); RBC Distribution Width CV 19.2 % (11.6-14.6); RBC Distribution Width SD 55.5 fl (35.1-43.9); Red Blood Count 5.63 M/mm3 (4.6-6.2); White Blood Count 10.7 K/mm3 (4.4-11.0)
[2018-08-17 08:32] LABS: Albumin, Serum 3.1 g/dL (3.2-5.0); BUN 30 mg/dL (7-18); BUN/Creat Ratio 13.4 RATIO (10-20); Calcium,Total 9.5 mg/dL (8.5-10.1); Chloride 104 mmol/L (98-107); Creatinine, Serum 2.24 mg/dL (0.70-1.30); EST Glomerular Filtration Rate 31 mL/min (>60); Est Glom Filt Rate - Afr Amer 37 mL/min (>60); Glucose 160 mg/dL (74-106); Phosphorus 2.9 mg/dL (2.5-4.9); Potassium 4.7 mmol/L (3.5-5.1); Sodium Level 138 mmol/L (136-145)
[2018-08-17 08:43] LABS: Scan Indicated on CBC? Y/N NO; Vitamin D,25 Hydroxy 45.9 ng/mL (29.95-100.01)
[2018-08-17 08:47] LABS: Protein, Urine (Random) 46.2 mg/dL (<11.9); Protein:Creat Ratio 155 mg/g CRE (0-200)
== END ==
PROVIDERS: Family Provider Family Medicine; PCP Family Medicine; Referring Provider Internal Medicine Nephrology; Visit Provider Internal Medicine Nephrology
DX: N18.3 Chronic kidney disease, stage 3 (moderate) (principal)
CPT/HCPCS: 36415; 80069; 82306; 82570; 83970; 84156; 85027

== ENCOUNTER → 2018-11-07 07:36 | Outpatient (CLI) | payer MEDICARE, SELFPAY ==
[2018-03-28 03:53] VITALS: BMI 24.2
[2018-11-07 08:51] LABS: Albumin, Serum 3.7 g/dL (3.2-5.0); BUN 35 mg/dL (7-18); BUN/Creat Ratio 17.9 RATIO (10-20); Calcium,Total 9.1 mg/dL (8.5-10.1); Chloride 107 mmol/L (98-107); Creatinine, Serum 1.95 mg/dL (0.70-1.30); EST Glomerular Filtration Rate 36 mL/min (>60); Est Glom Filt Rate - Afr Amer 43 mL/min (>60); Glucose 116 mg/dL (74-106); Phosphorus 2.7 mg/dL (2.5-4.9); Potassium 4.8 mmol/L (3.5-5.1); Sodium Level 140 mmol/L (136-145)
== END ==
PROVIDERS: Family Provider Family Medicine; PCP Family Medicine; Referring Provider Internal Medicine Nephrology; Visit Provider Internal Medicine Nephrology
DX: N18.3 Chronic kidney disease, stage 3 (moderate) (principal)
CPT/HCPCS: 36415; 80069

== ENCOUNTER → 2018-11-23 12:53 | Outpatient (CLI) | payer MEDICARE, SELFPAY ==
[2018-03-28 03:53] VITALS: BMI 24.2
[2018-11-23 13:18] LABS: Absolute Lymphocyte Count 2.24 X10^3/uL (0.83-4.51); Absolute Neutrophil Count 4.5 X10^3/uL (2.0-7.7); Basophil# 0.06 X10^3/uL; Basophil% 0.8 % (0-1); Eosinophil# 0.33 X10^3/uL; Eosinophils% 4.1 % (0-5); Hematocrit 49.1 % (40-54); Hemoglobin 15.5 g/dL (13.0-16.5); Lymphocyte # 2.24 X10^3/ul (4.0); Lymphocyte % 28.1 % (19-41); Mean Corp Hgb Conc 31.6 g/dL (32-36); Mean Corpuscular Hgb 27.5 pg (27.0-32.0); Mean Corpuscular Volume 87.1 fL (80-94); Mean Platelet Vol. 10.2 fl (6.2-12.0); Monocyte# 0.82 X10^3/uL; Monocyte% 10.3 % (0-10); NRBC Flagged by Analyzer 0 % (0-5); Neutrophil # 4.48 X10^3/uL (2.7-7.7); Neutrophil % 56.1 % (47-70); Platelet Count 206 K/mm3 (150-450); RBC Distribution Width CV 15.6 % (11.6-14.6); Red Blood Count 5.64 M/mm3 (4.6-6.2)
[2018-11-23 13:28] LABS: Anion Gap 3 (5-15); BUN 35 mg/dL (7-18); BUN/Creat Ratio 17.3 RATIO (10-20); Calcium,Total 9.1 mg/dL (8.5-10.1); Chloride 107 mmol/L (98-107); Creatinine, Serum 2.02 mg/dL (0.70-1.30); EST Glomerular Filtration Rate 34 mL/min (>60); Est Glom Filt Rate - Afr Amer 42 mL/min (>60); Glucose 108 mg/dL (74-106); Iron 162 ug/dL (65-175); Iron Binding Capacity,Total 387 ug/dL (250-450); PERCENT IRON SATURATION 41.9 % (15.0-55.0); Potassium 5.7 mmol/L (3.5-5.1); Sodium Level 136 mmol/L (136-145)
[2018-11-23 13:41] LABS: Hemoglobin A1c 6.6 % (4.2-6.3)
== END ==
PROVIDERS: Family Provider Family Medicine; PCP Family Medicine; Referring Provider Family Medicine; Visit Provider Family Medicine
DX: E11.22 Type 2 diabetes mellitus with diabetic chronic kidney disease (principal); N18.3 Chronic kidney disease, stage 3 (moderate); D50.9 Iron deficiency anemia, unspecified; E78.2 Mixed hyperlipidemia
CPT/HCPCS: 80048; 83036; 83540; 83550; 85025

== ENCOUNTER → 2018-12-06 15:38 | Outpatient (CLI) | payer MEDICARE, SELFPAY ==
[2018-12-06 14:20] VITALS: BMI 23.7
[2018-12-06 16:35] LABS: Anion Gap 9 (5-15); BUN 22 mg/dL (7-18); BUN/Creat Ratio 11.6 RATIO (10-20); Calcium,Total 9.2 mg/dL (8.5-10.1); Chloride 105 mmol/L (98-107); Creatinine, Serum 1.89 mg/dL (0.70-1.30); EST Glomerular Filtration Rate 37 mL/min (>60); Est Glom Filt Rate - Afr Amer 45 mL/min (>60); Glucose 103 mg/dL (74-106); Potassium 4.2 mmol/L (3.5-5.1); Sodium Level 140 mmol/L (136-145)
== END ==
PROVIDERS: Family Provider Family Medicine; PCP Family Medicine; Referring Provider Family Medicine; Visit Provider Family Medicine
DX: E87.5 Hyperkalemia (principal)
CPT/HCPCS: 80048

== ENCOUNTER → 2019-09-12 | Outpatient (CLI) | payer MEDICARE, SELFPAY ==
[2019-06-13 09:32] VITALS: BMI 24.7
[2019-09-12 15:55] LABS: Mucous, Urine 0 SEEN /hpf (<or=2+); Red Blood Cells-Urine 0 SEEN /hpf (0-5); Squamous Epithelial Cells - UA 0 SEEN /hpf (0-5)
[2019-09-12 16:11] LABS: Color, Urine Yellow (Yellow); Glucose, Dipstick Normal (Normal); Ketone-Dipstick Negative (Negative); Leukocyte Esterase-Dipstick 500 /ul (Negative); Nitrite-Dipstick Positive (Negative); Occult Blood-Urine 10 /ul (Negative); Protein-Dipstick 15 mg/dl (Negative); Specific Gravity, Urine 1.015 (1.002-1.030); Urine Bilirubin Dipstick Negative (Negative); Urine Clarity Sl. Cloudy (Clear); Urine Urobilinogen Normal (Normal)
[2019-09-12 16:18] LABS: ALB/GLOB Ratio 1.1 RATIO (0.9-2.4); AST(SGOT) 22 U/L (15-37); Alanine Aminotransfer ALT/SGPT 28 U/L (16-61); Albumin, Serum 3.8 g/dL (3.2-5.0); Alkaline Phosphatase 94 U/L (45-117); Anion Gap 3 (5-15); BUN 24 mg/dL (7-18); BUN/Creat Ratio 12.6 RATIO (10-20); Calcium,Total 9.1 mg/dL (8.5-10.1); Chloride 108 mmol/L (98-107); EST Glomerular Filtration Rate 37 mL/min (>60); Est Glom Filt Rate - Afr Amer 45 mL/min (>60); Globulin 3.5 g/dL (2.2-4.2); Glucose 158 mg/dL (74-106); Potassium 4.3 mmol/L (3.5-5.1); Protein, Total 7.3 g/dL (6.4-8.2); Sodium Level 140 mmol/L (136-145)
[2019-09-12 16:20] LABS: Bacteria 3+ /hpf (None Seen); White Blood Cells 10-25 SEEN /hpf (0-5)
[2019-09-12 16:41] LABS: Microalbumin,Random Urine 69.2 mg/L (NO RANGE EST.); Microalbumin:Creatinine Ratio 57.2 mg/g CRE (<30 mg/g CRE)
== END | disposition home or self-care (01) ==
LOC: LABSPEC 12:26
PROVIDERS: PCP Family Medicine; Referring Provider Family Medicine; Visit Provider Family Medicine
DX: E11.22 Type 2 diabetes mellitus with diabetic chronic kidney disease (principal); N18.3 Chronic kidney disease, stage 3 (moderate); E78.2 Mixed hyperlipidemia
CPT/HCPCS: 80053; 81001; 82043; 82570

== ENCOUNTER → 2019-10-17 | Outpatient (CLI) | payer MEDICARE, SELFPAY ==
[2019-06-13 09:32] VITALS: BMI 24.7
[2019-10-17 13:07] LABS: Absolute Lymphocyte Count 2.18 X10^3/uL (0.83-4.51); Absolute Neutrophil Count 5.9 X10^3/uL (2.0-7.7); Basophil# 0.05 X10^3/uL; Basophil% 0.5 % (0-1); Eosinophil# 0.32 X10^3/uL; Eosinophils% 3.4 % (0-5); Hematocrit 51.1 % (40-54); Hemoglobin 16.7 g/dL (13.0-16.5); Lymphocyte # 2.18 X10^3/ul (4.0); Lymphocyte % 23.5 % (19-41); Mean Corp Hgb Conc 32.7 g/dL (32-36); Mean Corpuscular Hgb 29.7 pg (27.0-32.0); Mean Corpuscular Volume 90.9 fL (80-94); Mean Platelet Vol. 10.9 fl (6.2-12.0); Monocyte# 0.71 X10^3/uL; Monocyte% 7.7 % (0-10); NRBC Flagged by Analyzer 0 % (0-5); Neutrophil # 5.93 X10^3/uL (2.7-7.7); Neutrophil % 63.9 % (47-70); Platelet Count 215 K/mm3 (150-450); RBC Distribution Width CV 13.8 % (11.6-14.6); RBC Distribution Width SD 45.6 fl (35.1-43.9); Red Blood Count 5.62 M/mm3 (4.6-6.2); White Blood Count 9.3 K/mm3 (4.4-11.0)
[2019-10-17 13:25] LABS: Cholesterol 162 mg/dL (200); High Density Lipoprotein 52 mg/dL; Iron 121 ug/dL (65-175); Iron Binding Capacity,Total 340 ug/dL (250-450); Triglycerides 128 mg/dL; Very Low Density Lipoprotein 26 mg/dL (5-40)
[2019-10-17 13:28] LABS: Microalbumin,Random Urine 29.8 mg/L (NO RANGE EST.); Microalbumin:Creatinine Ratio 49.1 mg/g CRE (<30 mg/g CRE)
[2019-10-17 13:30] LABS: Hemoglobin A1c 6.3 % (3.8-5.6)
== END | disposition home or self-care (01) ==
LOC: LABSPEC 12:28
PROVIDERS: PCP Family Medicine; Visit Provider Family Medicine
DX: E11.22 Type 2 diabetes mellitus with diabetic chronic kidney disease (principal); N18.3 Chronic kidney disease, stage 3 (moderate); D50.9 Iron deficiency anemia, unspecified
CPT/HCPCS: 80061; 82043; 82570; 83036; 83540; 83550; 85025

== ENCOUNTER 2019-11-10 10:04 | Observation (INO) | payer MEDICARE, SELFPAY ==
[2019-06-13 09:32] VITALS: BMI 24.7
[2019-11-10] VITALS (13 sets, daily range): BP systolic 113–166; BP diastolic 71–94; PULSE 64–81; RESP 17–21; TEMP 36.4–36.7; O2SAT 94–99; BMI 24.4; BMI 24.0
--- NOTE | 2019-11-10 10:13 | EKG12_ITS ---
Test Reason : CP Blood Pressure : / mmHG Vent. Rate : 067 BPM Atrial Rate : 068 BPM P-R Int : 000 ms QRS Dur : 100 ms QT Int : 398 ms P-R-T Axes : 000 060 071 degrees QTc Int : 420 ms Sinus Rhythm with Sinus Arrhythmia and PVC's Otherwise normal ECG Confirmed by KRISTINE BISWAS, ELLEN ([id number]), business editor KIMI GONZALES ([id number]) on 11/13/2019 10:07:14 AM Referred By: SHAHEED Confirmed By:ELLEN CARMONA MD
--- NOTE | 2019-11-10 10:13 | RAD_ITS ---
STUDY: X-RAY CHEST REASON FOR EXAM: Male, 74 years old. chest pain started early this morning TECHNIQUE: Single AP portable view of the chest. COMPARISON: 07/30/2015 FINDINGS: Status post median sternotomy. There is hyperinflation of the lungs consistent with chronic obstructive lung disease (COPD). There is no demonstrated pleural abnormality. Normal size heart. Normal mediastinum and lon. Normal visualized pulmonary arteries. Normal visualized aortic arch and descending thoracic aorta. Normal visualized thoracic spine. Normal visualized ribs, clavicles, and shoulders. There is no demonstrated abnormality of the visualized soft tissue structures of the upper abdomen. RAD/Chest 1 View (Portable) IMPRESSION: Emphysema without pneumonia or atelectasis. Electronically Signed: Parmjit Fuller MD at 11:06 EDT Tel , Service support ,
--- NOTE | 2019-11-10 10:14 | ED.DCSUM_ITS ---
History of Present Illness Informant: Patient Onset: Today Narrative: 74 year old male with PMH HTN, HLD, DM2, CAD, SD, CABG, cardiac ectopy/SVT, COPD, CKD stage 3, AAA presents with chest pain. Around 0300 he developed sharp midsternal chest pain that woke him from sleep. Pain radiated into left arm. No shortness of breath, nausea, vomiting, or diaphoresis. Pain lasted 1-2 minutes and occurred intermittently until 1000 when EMS arrived. Pain was at rest. Nonexertional, nonpleuritic. No pain currently. Denies fevers, chills, cough, hemoptysis, abdominal pain, or diarrhea. He states he had an SD in the , CABG in 1994, and an SD in 2015. Most recent stress test in 11/2016 was negative for ischemia. He takes daily aspirin, no blood thinners. <Farzana Diggs - Last Filed: 11/10/19 11:12> <Carlos Holt - Last Filed: 11/10/19 11:20> Chief Complaint: Chest Pain Past Medical History Past Medical History: - - HTN, HLD, DM2, CAD, SD, CABG, COPD, CKD stage 3 Surgical History: coronary bypass surgery Smoking Status: Former smoker - Family History Maternal Family History: Family History (Last Reviewed 07/18/19 @ 14:50 by Sara CAURSO, PA) Father Heart disease Myocardial infarction, Onset Age: 48 Grandfather CVA (cerebral vascular accident) Grandmother Heart disease Family History: Reports: No pertinent history, - - No family history of Colon cancer. Paternal Family History: Family History (Last Reviewed 07/18/19 @ 14:50 by Sara CARUSO, PA) Father Heart disease Myocardial infarction, Onset Age: 48 Grandfather CVA (cerebral vascular accident) Grandmother Heart disease Family History: Reports: No pertinent history <Farzana Diggs - Last Filed: 11/10/19 11:12> - Family History Maternal Family History: Family History (Last Reviewed 07/18/19 @ 14:50 by Sara CARUSO, PA) Father Heart disease Myocardial infarction, Onset Age: 48 Grandfather CVA (cerebral vascular accident) Grandmother Heart disease Paternal Family History: Family History (Last Reviewed 07/18/19 @ 14:50 by Sara Brannon PA, PA) Father Heart disease Myocardial infarction, Onset Age: 48 Grandfather CVA (cerebral vascular accident) Grandmother Heart disease <YanetCarlos - Last Filed: 11/10/19 11:20> - Allergies and Home Meds Allergies/Adverse Reactions: Allergies Penicillins Allergy (Verified 11/10/19 10:04) Unknown Review of Systems General: Denies: Chills, Fever, Sweats Eyes: Denies: Visual changes - bilaterally, Diplopia ENT: Denies: Rhinorrhea, Sore throat Cardiovascular: Reports: Chest pain. Denies: Palpitations Respiratory: Denies: Dyspnea, Cough, Dyspnea on exertion Gastrointestinal: Denies: Abdominal pain, Nausea, Vomiting, Diarrhea, Melena, Hematochezia Genitourinary: Denies: Dysuria, Hematuria, Frequency Musculoskeletal: Denies: Back pain, Extremity Pain Skin: Denies: Rash, Wounds Neurological: Denies: Headache, Weakness, Numbness <Farzana Diggs - Last Filed: 11/10/19 11:12> Physical Exam Vital Signs/Narrative: Vital Signs Temp Pulse Resp BP Pulse Ox 11/10/19 10:04 97.6 F L 74 21 H 166/94 H 97 Inital Vital Signs reviewed: Yes General: Well nourished, Well developed, No Acute Distress Head: Normocephalic, Atraumatic Eyes: Perrl, EOMI ENT: Moist mucous membranes, No rhinorrhea Neck: Supple, Nontender Cardiovascular: Regular rate, Regular rhythm, No murmurs Respiratory: No distress, CTA bilaterally, Chest nontender Abdomen: Soft, Nontender, Nondistended, Normal bowel sounds Back: Nontender, Normal Inspection Extremities: Nontender, No edema Skin: Normal color, No rash Neurological: Alert, Oriented x3, Cranial nerves II-XII grossly intact <Farzana Diggs - Last Filed: 11/10/19 11:12> Vital Signs/Narrative: Vital Signs Temp Pulse Resp BP Pulse Ox 11/10/19 11:09 97.9 F 69 18 113/81 H 96 11/10/19 11:04 68 17 113/81 H 96 11/10/19 10:15 98 11/10/19 10:04 97.6 F L 74 21 H 166/94 H 97 <Carlos Holt - Last Filed: 11/10/19 11:20> Diagnostic/Tx/Re-eval Clinical Impression(s) from Imaging Studies Chest X-Ray 11/10/19 10:13 IMPRESSION: Emphysema without pneumonia or atelectasis. Electronically Signed: Parmjit Fuller MD at 11:06 EDT Tel , Service support , Laboratory Data 11/10/19 11/10/19 10:05 10:05 WBC 9.2 RBC 5.42 Hgb 15.7 Hct 49.8 MCV 91.9 MCH 29.0 MCHC 31.5 L RDW Std Deviation 45.8 H RDW Coeff of Meenu 13.5 Plt Count 186 MPV 10.1 Immature Gran % (Auto) 0.500 Neut % (Auto) 61.0 Lymph % (Auto) 25.2 [place] % (Auto) 10.0 Eos % (Auto) 3.1 Baso % (Auto) 0.2 Absolute Neuts (auto) 5.6 Absolute Lymphs (auto) 2.33 Nucleated RBC % 0 Sodium 142 Potassium 4.5 Chloride 112 H Carbon Dioxide 27.0 Anion Gap 3 L BUN 31 H Creatinine 1.56 H Estim Creat Clear Calc 37.66 Est GFR (MDRD) Af Amer 56 L Est GFR (MDRD) Non-Af 46 L BUN/Creatinine Ratio 19.9 Glucose 108 H Calcium 8.7 Troponin I < 0.015 - Rhythm Strip Rhythm Strip: Sinus Rhythm Rate: 67 Ectopy: PVC(s) - Medical Decision Making Patient presented with chest pain with an extensive cardiac history. He appears well nontoxic. Vital signs show BP of 166/94, otherwise within normal limits. General medical exam unremarkable. EKG shows normal sinus rhythm with PVCs and no ischemic changes. Initial troponin negative. Labs unremarkable with creatinine improved from baseline. Chest x-ray shows no acute process. Heart score is 6 and patient will require admission for chest pain work-up. He was given full dose of aspirin. Case was discussed with hospitalist who is agreeable to chest pain observation and patient was transferred to PCU in stable condition. <Farzana Diggs - Last Filed: 11/10/19 11:12> - Medical Decision Making I supervised the PA and have performed my own pertinent history and physical. Results and treatment plan were discussed. HPI: Patient reports that 3:00 this morning he was awakened by chest pain. States this is similar to when he has had an SD previously. PE: Vitals: Stable. Afebrile. General: Well-nourished and well-developed. Head: Normocephalic atraumatic. Neck: Supple, no lymphadenopathy. No JVD. Nontender. Cardiovascular: Regular rate and rhythm. No murmurs. Respiratory: No respiratory distress. Clear to auscultation bilaterally. Abdominal: Soft, nontender, nondistended, normal bowel sounds. No guarding, rebound, or peritoneal signs. Back: Nontender. Extremities: Nontender, no edema. Skin: Normal color, no rash. Neurologic: Alert and oriented ?3. Cranial nerves II through XII are intact. Normal strength and sensation. Psych: Normal affect. Emergency Department course: Troponin is negative. EKG shows no acute changes. The patient was treated with aspirin. He is pain-free while here. Treatment Plan: Patient was discussed with the hospitalist. He will will be admitted for further evaluation and treatment. This note was generated with [employer] dictation software. It may contain incorrect words, spelling, and punctuation that were not noted in review of the chart prior to signing. <Carlos Holt - Last Filed: 11/10/19 11:20> ED Disposition <Farzana Diggs - Last Filed: 11/10/19 11:12> <Carlos Holt - Last Filed: 11/10/19 11:20> - Plan for ED Patient: Disposition: Acute Care Hospital [facility] Diagnosis: Chest pain
[2019-11-10 10:20] LABS: Absolute Lymphocyte Count 2.33 X10^3/uL (0.83-4.51); Absolute Neutrophil Count 5.6 X10^3/uL (2.0-7.7); Basophil# 0.02 X10^3/uL; Basophil% 0.2 % (0-1); Eosinophil# 0.29 X10^3/uL; Eosinophils% 3.1 % (0-5); Hematocrit 49.8 % (40-54); Hemoglobin 15.7 g/dL (13.0-16.5); Lymphocyte # 2.33 X10^3/ul (4.0); Lymphocyte % 25.2 % (19-41); Mean Corp Hgb Conc 31.5 g/dL (32-36); Mean Corpuscular Volume 91.9 fL (80-94); Mean Platelet Vol. 10.1 fl (6.2-12.0); Monocyte# 0.92 X10^3/uL; NRBC Flagged by Analyzer 0 % (0-5); Neutrophil # 5.63 X10^3/uL (2.7-7.7); Platelet Count 186 K/mm3 (150-450); RBC Distribution Width CV 13.5 % (11.6-14.6); RBC Distribution Width SD 45.8 fl (35.1-43.9); Red Blood Count 5.42 M/mm3 (4.6-6.2); White Blood Count 9.2 K/mm3 (4.4-11.0)
[2019-11-10 10:36] LABS: Anion Gap 3 (5-15); BUN 31 mg/dL (7-18); BUN/Creat Ratio 19.9 RATIO (10-20); Calcium,Total 8.7 mg/dL (8.5-10.1); Chloride 112 mmol/L (98-107); Creatinine, Serum 1.56 mg/dL (0.70-1.30); EST Glomerular Filtration Rate 46 mL/min (>60); Est Glom Filt Rate - Afr Amer 56 mL/min (>60); Estimated Creatinine Clearance 37.66 ml/min; Glucose 108 mg/dL (74-106); Potassium 4.5 mmol/L (3.5-5.1); Sodium Level 142 mmol/L (136-145)
--- NOTE | 2019-11-10 11:30 | PCM.HP.STD ---
Problem List (1) Chest pain Status: Acute (2) GERD (gastroesophageal reflux disease) Status: Chronic (3) SVT (supraventricular tachycardia) Status: Acute (4) Premature ventricular contraction Status: Acute (5) Lung nodule, multiple Status: Acute (6) Type 2 diabetes mellitus Status: Chronic (7) Abdominal aortic aneurysm without rupture Status: Chronic Comment: Distal Aorta 3.6cm per ABD US 06/01/18 (8) COPD (chronic obstructive pulmonary disease) Status: Chronic (9) Ischemic cardiomyopathy Status: Chronic (10) Mixed hyperlipidemia Status: Chronic (11) History of coronary artery bypass surgery Status: Chronic Comment: CABG x3- RUFF to LAD, SVG to OM, and SVG to RCA (12) Essential hypertension Status: Chronic (13) Atherosclerotic heart disease of [place] coronary artery without angina pectoris Status: Chronic Qualifiers: [place] vs. transplanted heart: [place] heart Qualified Code(s): I25.10 - Atherosclerotic heart disease of [place] coronary artery without angina pectoris (14) Stage III chronic kidney disease Status: Chronic (15) Lower gastrointestinal bleeding Status: Acute History of Present Illness Date of Admission: 11/10/19 Chief Complaint: chest pain The patient is a 74 year old M presents with chest pain. Began this AM with paresthesias down left arm and dizziness. Similar to prior MIs, but he did not have the left arm paresthesias. Work up thus far negative.[] Past Medical History Past Medical History (Chronic Problems): Chronic Problems (Last Reviewed 11/10/19 @ 11:[address] Herber Acharya DO) GERD (gastroesophageal reflux disease) (Chronic) Type 2 diabetes mellitus (Chronic) Abdominal aortic aneurysm without rupture (Chronic) Distal Aorta 3.6cm per ABD US 06/01/18 COPD (chronic obstructive pulmonary disease) (Chronic) Ischemic cardiomyopathy (Chronic) Mixed hyperlipidemia (Chronic) History of coronary artery bypass surgery (Chronic ~1994) CABG x3- RUFF to LAD, SVG to OM, and SVG to RCA Essential hypertension (Chronic) Atherosclerotic heart disease of [place] coronary artery without angina pectoris (Chronic) Stage III chronic kidney disease (Chronic) Medical History: Medical History (Last Reviewed 11/10/19 @ 11:[address] Herber Acharya DO) GERD (gastroesophageal reflux disease) (Chronic) K21.9 SVT (supraventricular tachycardia) (Acute) I47.1 Premature ventricular contraction (Acute) I49.3 Lung nodule, multiple (Acute) R91.8 Type 2 diabetes mellitus (Chronic) E11.9 Abdominal aortic aneurysm without rupture (Chronic) I71.4 Distal Aorta 3.6cm per ABD US 06/01/18 COPD (chronic obstructive pulmonary disease) (Chronic) J44.9 Ischemic cardiomyopathy (Chronic) I25.5 Mixed hyperlipidemia (Chronic) E78.2 Essential hypertension (Chronic) I10 Atherosclerotic heart disease of [place] coronary artery without angina pectoris (Chronic) I25.10 Stage III chronic kidney disease (Chronic) N18.3 Lower gastrointestinal bleeding (Acute) K92.2 Colon polyp K63.5 Old myocardial infarction I25.2 Allergies Penicillins Allergy (Verified 11/10/19 10:04) Unknown Home Medications: Ambulatory Orders Medication Instructions Recorded Aspirin E.C. [Ecotrin] 81 mg PO DAILY@0800 07/30/15 Cholecalciferol (VIT D3) [Vitamin 1,000 unit PO LUNCH 07/30/15 D3] Co Q10 200 [Co Q-10] 100 mg PO QHS 03/25/18 atorvastatin 20 mg tablet 20 mg PO QHS 12/05/18 loratadine 10 mg tablet 10 mg PO DAILY 12/05/18 metoprolol tartrate 50 mg tablet 50 mg PO BID #60 tab 06/13/19 Amlodipine [Norvasc] 2.5 mg PO DAILY 11/10/19 Surgical History: Surgical History (Last Reviewed 11/10/19 @ 11:[address] Herber Acharya DO) History of coronary artery bypass surgery (Chronic) Onset Date: ~1994 Z95.1 CABG x3- RUFF to LAD, SVG to OM, and SVG to RCA History of carpal tunnel surgery Z98.890 Status post colectomy Z90.49 Surgical History: coronary bypass surgery Psychiatric History: No pertinent psych hx Smoking Status: Former smoker - *Family History Maternal Family History: Family History (Last Reviewed 11/10/19 @ 11:[address] Herber Acharya DO) Father Heart disease Myocardial infarction, Onset Age: 48 Grandfather CVA (cerebral vascular accident) Grandmother Heart disease History Items: No pertinent history, - - No family history of Colon cancer. Paternal Family History: Family History (Last Reviewed 11/10/19 @ 11:[address] Herber Acharya DO) Father Heart disease Myocardial infarction, Onset Age: 48 Grandfather CVA (cerebral vascular accident) Grandmother Heart disease History Items: No pertinent history Review of Systems Constitutional: Denies: Anorexia, Chills, Fever, Night Sweats Eyes: Denies: Blurred vision, Double vision HEENT: Denies: Head Aches, Sinus Congestion, Sinus Drainage Cardiovascular: Reports: Chest Pain. Denies: Edema Respiratory: Denies: Cough, Shortness of breath at rest, Sputum production Gastrointestinal: Denies: Abdominal Pain, Nausea, Vomiting Genitourinary: Denies: Dysuria Musculoskeletal: Denies: Joint Pain, Joint Tenderness Skin: Denies: Dryness Hematologic/ Lymphatic: Denies: Easy Bruising, Easy Bleeding, Hx of blood clot Comment: All review of systems were negative except as mentioned above in the history of present illness and the other review of systems. VTE Information - Inpt Only VTE Present on Admission: No VTE Mechan Device Prophylaxis: None VTE Pharm Prophylaxis ordered?: No Reason prophylaxis not ordered:: Treatment Not Indicated Patient Problems: Active and Suspected Problems (Last Reviewed 11/10/19 @ 11:[address] Herber Acharya DO) Chest pain (Acute) - Physical Exam Vitals/I&O's: Vital Signs Temp Pulse Resp BP Pulse Ox 36.6 C 69 18 113/81 H 96 11/10/19 11:09 11/10/19 11:09 11/10/19 11:09 11/10/19 11:09 11/10/19 11:09 Oxygen Delivery Method Room Air Weight: 70.8 kg Body Mass Index (BMI) 24.4 Finger Stick Blood Glucose 123 General: Alert, Cooperative, No apparent distress HEENT: Atraumatic, Normocephalic Oral: Moist Mucosa, No Gingival or Mucosal Lesions/ Ulcerations Neck: No Nodes, Thyroid Normal Size and Texture Lungs: Clear to auscultation, Normal air movement, No rhonchi, No wheeze, No rales Cardiovascular: Regular rate, Regular Rhythm, Normal S1, Normal S2, No murmurs Abdomen: Bowel Sounds Present, Soft, Non Tender, Non-Distended, No Hepato-splenomegaly Extremities: No edema, No Calf Tenderness Skin: No rashes, No breakdown Psych/Mental Status: Normal Affect, Appropriate Laboratory Results 11/10/19 10:05: WBC 9.2, RBC 5.42, Hgb 15.7, Hct 49.8, MCV 91.9, MCH 29.0, MCHC 31.5 L, RDW Std Deviation 45.8 H, RDW Coeff of Meenu 13.5, Plt Count 186, MPV 10.1, Immature Gran % (Auto) 0.500, Neut % (Auto) 61.0, Lymph % (Auto) 25.2, [place] % (Auto) 10.0, Eos % (Auto) 3.1, Baso % (Auto) 0.2, Absolute Neuts (auto) 5.6, Absolute Lymphs (auto) 2.33, Nucleated RBC % 0 11/10/19 10:05: Sodium 142, Potassium 4.5, Chloride 112 H, Carbon Dioxide 27.0, Anion Gap 3 L, BUN 31 H, Creatinine 1.56 H, Estim Creat Clear Calc 37.66, Est GFR (MDRD) Af Amer 56 L, Est GFR (MDRD) Non-Af 46 L, BUN/Creatinine Ratio 19.9, Glucose 108 H, Calcium 8.7, Troponin I < 0.015 EKG reviewed and showed normal sinus rhythm with PVCs. Chest x-ray personally reviewed and showed normal airways without any infiltrate nor pulmonary vascular congestion. Assessment/Plan All Active Problems (Last Reviewed 11/10/19 @ 11:[address] Herber Acharya, DO) Chest pain (Acute) SVT (supraventricular tachycardia) (Acute) Premature ventricular contraction (Acute) Lung nodule, multiple (Acute) Lower gastrointestinal bleeding (Acute) 1. chest pain: work up thus far negative. plan for stress test on 11/10. continue ASA. 2. vertigo: improved. 3. VTE prophylaxis: not indicated 4. ACP: DW patient. DNRCCA. OBSV E&M: [id number] Initial observation care L2
--- NOTE | 2019-11-10 12:18 | EKG12_ITS ---
Test Reason : CP ADMISSION Blood Pressure : / mmHG Vent. Rate : 061 BPM Atrial Rate : 061 BPM P-R Int : 148 ms QRS Dur : 100 ms QT Int : 424 ms P-R-T Axes : 039 062 078 degrees QTc Int : 426 ms Normal sinus rhythm with sinus arrhythmia Nonspecific ST/T Wave Abnormality Confirmed by ISIAH BISWAS, CYRUS ([id number]), editor city KIMI GONZALES ([id number]) on 11/13/2019 10:24:09 AM Referred By: PRITI Confirmed By:CYRUS JOYCE MD
[2019-11-10] MEDS: amLODIPine 2.5 MG Tablet PO (13:43)
[2019-11-10] MEDS: Metoprolol Tartrate 50 MG Tablet PO (21:25)
[2019-11-10] MEDS: Atorvastatin Calcium 20 MG Tablet PO (21:26)
[2019-11-11] VITALS (9 sets, daily range): BP systolic 121–144; BP diastolic 71–80; PULSE 63–80; RESP 16–18; TEMP 36.3–37.1; O2SAT 92–98
[2019-11-11] MEDS: Aspirin E.C. 81 MG Tablet PO (05:26)
--- NOTE | 2019-11-11 10:32 | STRESSREP ---
Stress Test Report Pharmacologic myocardial perfusion stress test. 74-year-old man with a history of previous coronary artery disease status post coronary bypass surgery. Stress protocol: Resting EKG demonstrates normal sinus rhythm with a rate of [address] depression noted in lead II and aVF. Resting blood pressure is 122/86 mmHg. 0.4 mg of regadenoson was infused per usual protocol followed by rapid intravenous saline flush injection continuous EKG monitoring was performed. The maximum heart rate attained was 102 bpm which was 70% of max impacted heart rate the maximum workload was 1 metabolic equivalent. At rest there were no ST or T wave changes noted to suggest abnormal flow reserve at peak infusion nonspecific ST-T wave changes were noted with no meet the criteria for ischemia. There was mild downsloping ST depression noted in the inferolateral leads. Myocardial perfusion protocol. 12.0 mCi of technetium 99m sestamibi was injected at rest. 0.4 mg of regadenoson was infused per usual protocol. At peak infusion 35.0 mCi of technetium 99m sestamibi was injected at rest. Stress and rest images were reconstructed and compared in the short axis vertical and horizontal long axis. Gated images were also obtained per Perfusion SPECT analysis: Review of the images demonstrate normal uptake of tracer noted in all areas of myocardium except for small portion of the mid anterior wall. There is mildly reduced perfusion in this area on the stress images and also on the resting images. No significant reversibility is noted to suggest ischemia. Gated SPECT analysis: The gated ejection fraction is noted to be 45%. Conclusion: Pharmacologic myocardial perfusion stress test with no obvious ischemia noted. A previous small anterior infarct cannot be completely excluded. Low normal ejection fraction.
[2019-11-11] MEDS: Loratadine 10 MG Tablet PO (10:41)
[2019-11-11] MEDS: Metoprolol Tartrate 50 MG Tablet PO (10:43)
[2019-11-11] MEDS: amLODIPine 2.5 MG Tablet PO (10:43)
[2019-11-11 10:57] LABS: Hematocrit 49.6 % (40-54); Hemoglobin 15.8 g/dL (13.0-16.5); Mean Corp Hgb Conc 31.9 g/dL (32-36); Mean Corpuscular Hgb 29.5 pg (27.0-32.0); Mean Corpuscular Volume 92.5 fL (80-94); Platelet Count 159 K/mm3 (150-450); RBC Distribution Width CV 13.7 % (11.6-14.6); RBC Distribution Width SD 46.4 fl (35.1-43.9); Red Blood Count 5.36 M/mm3 (4.6-6.2); White Blood Count 6.7 K/mm3 (4.4-11.0)
--- NOTE | 2019-11-11 10:57 | DCINST_ITS ---
- Discharge Diagnoses Current Active Problems: Current Active and Chronic Problems (Last Reviewed 11/10/19 @ 11:[address] Herber Acharya, DO) Chest pain (Acute) You will use the following diet at home:: Cardiac Your food should be the consistency of: Regular Your liquids should be the consistency of: Regular/Thin Discharge Activity: Return to Normal Activity Call your doctor if you observe: Chest pain Allergies/Adverse Reactions: Allergies Penicillins Allergy (Verified 11/10/19 10:04) Unknown Medications to take at Discharge Aspirin E.C. [Ecotrin] 81 mg PO DAILY@0800 07/30/15 Cholecalciferol (VIT D3) [Vitamin D3] 1,000 unit PO LUNCH 07/30/15 Co Q10 200 [Co Q-10] 100 mg PO QHS 03/25/18 atorvastatin 20 mg tablet 20 mg PO QHS 12/05/18 loratadine 10 mg tablet 10 mg PO DAILY 12/05/18 metoprolol tartrate 50 mg tablet 50 mg PO BID #60 tab 06/13/19 Amlodipine [Norvasc] 2.5 mg PO DAILY 11/10/19 Folic Acid 800 mg PO DAILY 11/10/19 Primary Care Physician: Marko Newsome MD [Primary Care Provider] - Please follow up with your Primary Care Physician in: 1-2 weeks Test Results: Test results from this visit will be discussed in further detail at your follow- up appointment, if applicable. Please Follow Up With: Placido Dorado MD When: 3-4 weeks Proposed Discharge Date: 11/11/19
[2019-11-11 11:11] LABS: Anion Gap 4 (5-15); BUN 31 mg/dL (7-18); BUN/Creat Ratio 17.5 RATIO (10-20); Calcium,Total 9.1 mg/dL (8.5-10.1); Chloride 107 mmol/L (98-107); Creatinine, Serum 1.77 mg/dL (0.70-1.30); EST Glomerular Filtration Rate 40 mL/min (>60); Est Glom Filt Rate - Afr Amer 48 mL/min (>60); Glucose 183 mg/dL (74-106); Potassium 4.6 mmol/L (3.5-5.1); Sodium Level 137 mmol/L (136-145)
--- NOTE | 2019-11-11 12:39 | DS.PCM_ITS ---
<Forest Dubon - Last Filed: 11/11/19 12:39> Discharge Date and Diagnosis Date of Admission: 11/10/19 Date of Discharge: 11/11/19 - Primary Discharge Diagnosis Acute Problems: Active Problems (Last Reviewed 11/10/19 @ 11:[address] Herber Acharya DO) Chest pain - musculoskeletal - Secondary Discharge Diagnosis Chronic Problems: Chronic Problems (Last Reviewed 11/10/19 @ 11:[address] Herber Acharya DO) GERD (gastroesophageal reflux disease) (Chronic) Type 2 diabetes mellitus (Chronic) Abdominal aortic aneurysm without rupture (Chronic) Distal Aorta 3.6cm per ABD US 06/01/18 COPD (chronic obstructive pulmonary disease) (Chronic) Ischemic cardiomyopathy (Chronic) Mixed hyperlipidemia (Chronic) History of coronary artery bypass surgery (Chronic ~1994) CABG x3- RUFF to LAD, SVG to OM, and SVG to RCA Essential hypertension (Chronic) Atherosclerotic heart disease of [place] coronary artery without angina pectoris (Chronic) Stage III chronic kidney disease (Chronic) Hospital Course and Treatment Imaging Results: 11/11/19 05:55 Nuclear Stress Test - Chemical [NM] AM (NON MEDS) Gated SPECT analysis: The gated ejection fraction is noted to be 45%. Conclusion: Pharmacologic myocardial perfusion stress test with no obvious ischemia noted. A previous small anterior infarct cannot be completely excluded. Low normal ejection fraction. RAD/Chest 1 View (Portable) IMPRESSION: Emphysema without pneumonia or atelectasis. Procedures: Stress test Summary of Care Provided: Hospital course: The patient is a 74 year old M with medical history notable for CAD and ischemic cardiomyopathy who presented to the emergency room with complaints of chest pain. Patient stated that the pain woke him up and was associated with paresthesias down the left arm and some dizziness, felt like it was similar to his prior heart attack. In the emergency room chest x-ray demonstrated emphysema, troponin was negative, EKG was negative. Patient was admitted for chest pain work-up. Troponin was negative x3. Patient underwent a stress test the following morning that was negative as well. Patient had no further chest pain. He was discharged home in stable condition. he was advised to follow-up with his PCP in 1 to 2 weeks. He should follow up with his turn sewer in 3-4 w eeks. This patient was seen by Forest Dubon PA-C under the supervision of Doctor Shai. [] - Physical Exam Vitals/I&O's: Vital Signs Temp Pulse Resp BP Pulse Ox 97.4 F L 80 17 121/73 H 98 11/11/19 08:05 11/11/19 11:50 11/11/19 08:05 11/11/19 08:05 11/11/19 08:05 Oxygen Delivery Method Room Air Weight: 153 lb 7.068 oz Body Mass Index (BMI) 24.0 Finger Stick Blood Glucose 123 Intake and Output for Last 24 Hours 11/09/19 11/10/19 11/11/19 23:59 23:59 23:59 Intake Total 1150 / 1150 Balance 1150 / 1150 General: Alert, Oriented x3, Cooperative HEENT: Atraumatic, PERRLA, EOMI, Normocephalic Neck: Supple, No JVD, Negative Carotid Bruits Lungs: Clear to auscultation, Normal air movement Cardiovascular: Regular rate, No murmurs Abdomen: Bowel Sounds Present, Soft, Non Tender Extremities: No edema, Capillary Refill Less than 3 Seconds Skin: No rashes, No breakdown Musculoskeletal: No Tenderness to Palpation of Joints or Extremities Neurological: Cranial nerves II-XII grossly intact Psych/Mental Status: Normal Affect, Appropriate, Alert and oriented to time, place, person, mood and affect Laboratory Results 11/10/19 12:53: Troponin I < 0.015 11/10/19 16:13: Troponin I < 0.015 11/11/19 10:51: WBC 6.7, RBC 5.36, Hgb 15.8, Hct 49.6, MCV 92.5, MCH 29.5, MCHC 31.9 L, RDW Std Deviation 46.4 H, RDW Coeff of Meenu 13.7, Plt Count 159, MPV 10.0 11/11/19 10:51: Sodium 137, Potassium 4.6, Chloride 107, Carbon Dioxide 26.0, Anion Gap 4 L, BUN 31 H, Creatinine 1.77 H, Estim Creat Clear Calc 33.20, Est GFR (MDRD) Af Amer 48 L, Est GFR (MDRD) Non-Af 40 L, BUN/Creatinine Ratio 17.5, Glucose 183 H, Calcium 9.1 11/11/19 10:51: Magnesium 2.0 Current Medications Acetaminophen (Tylenol) 650 mg PO Q6H PRN PRN PRN Reason: Pain Score 1-10/Temp > 100.7 F Amlodipine Besylate (Norvasc) 2.5 mg PO DAILY [facility] Last Admin: 11/11/19 10:43 Dose: 2.5 mg Documented by: Aspirin (Ecotrin) 81 mg PO DAILY@0800 [facility] Last Admin: 11/11/19 05:26 Dose: 81 mg Documented by: Atorvastatin Calcium (Lipitor) 20 mg PO QHS [facility] Last Admin: 11/10/19 21:26 Dose: 20 mg Documented by: Cholecalciferol (Vitamin D (25mcg)) 1,000 unit PO LUNCH [facility] Last Admin: 11/11/19 10:43 Dose: 1,000 unit Documented by: Sodium Chloride () 250 mls @ 15 mls/hr IV .[id number] PRN PRN Reason: Saline Flush Sodium Chloride () 250 mls @ 15 mls/hr IV .[id number] PRN PRN Reason: Additional IVPB Infusion Loratadine (Claritin) 10 mg PO DAILY [facility] Last Admin: 11/11/19 10:41 Dose: 10 mg Documented by: Metoprolol Tartrate (Lopressor (Beta Dwain)) 50 mg PO BID [facility] Last Admin: 11/11/19 10:43 Dose: 50 mg Documented by: Nitroglycerin (Nitrostat) 0.4 mg SUBLINGUAL Q5M PRN PRN Reason: CHEST PAIN Oxycodone HCl (Oxyir) 10 mg PO Q4H PRN PRN PRN Reason: Pain Score 6-10/10 Oxycodone HCl (Oxyir) 5 mg PO Q4H PRN PRN PRN Reason: Pain Score 4-5/10 Sodium Chloride () 10 - 40 ml IV UD PRN PRN Reason: SALINE FLUSH Discharge Diet: Low fat/ Low Cholesterol, 2000 mg Sodium Diet Discharge Activity: Return to Normal Activity Call your doctor if you observe: Chest pain Home Medications: Medications to take at Discharge Aspirin E.C. [Ecotrin] 81 mg PO DAILY@0800 07/30/15 Cholecalciferol (VIT D3) [Vitamin D3] 1,000 unit PO LUNCH 07/30/15 Co Q10 200 [Co Q-10] 100 mg PO QHS 03/25/18 atorvastatin 20 mg tablet 20 mg PO QHS 12/05/18 loratadine 10 mg tablet 10 mg PO DAILY 12/05/18 metoprolol tartrate 50 mg tablet 50 mg PO BID #60 tab 06/13/19 Amlodipine [Norvasc] 2.5 mg PO DAILY 11/10/19 Folic Acid 800 mg PO DAILY 11/10/19 Primary Care Physician: Marko Newsome MD [Primary Care Provider] - Please follow up with your Primary Care Physician in: 1-2 weeks Please Follow Up With: Placido Dorado MD When: 3-4 weeks Disposition: Home Minutes spent on discharge:: 35 Patient Condition:: Stable Medical Necessity - Tobacco Use Smoking Status: Former smoker Meaningful Use Info Meaningful Use Diagnoses (Choose all that apply): None applicable <Hansel Gibbons - Last Filed: 11/11/19 15:13> Discharge Date and Diagnosis - Secondary Discharge Diagnosis Chronic Problems: Chronic Problems (Last Reviewed 11/10/19 @ 11:[address] Herber Acharya, DO) GERD (gastroesophageal reflux disease) (Chronic) Type 2 diabetes mellitus (Chronic) Abdominal aortic aneurysm without rupture (Chronic) Distal Aorta 3.6cm per ABD US 06/01/18 COPD (chronic obstructive pulmonary disease) (Chronic) Ischemic cardiomyopathy (Chronic) Mixed hyperlipidemia (Chronic) History of coronary artery bypass surgery (Chronic ~1994) CABG x3- RUFF to LAD, SVG to OM, and SVG to RCA Essential hypertension (Chronic) Atherosclerotic heart disease of [place] coronary artery without angina pectoris (Chronic) Stage III chronic kidney disease (Chronic) Hospital Course and Treatment Imaging Results: 11/11/19 05:55 Nuclear Stress Test - Chemical [NM] AM (NON MEDS) Summary of Care Provided: This patient was seen in conjunction with Forest Dubon PA-C . I have independent ly interviewed and examined the patient and reviewed pertinent historical, laboratory, and other data. Please refer to Forest Dubon PA-C note for details of this patient's presentation, findings, and recommendations. I have reviewed Forest Dubon PA-C note and concur with documented findings. In brief, patient 74-year-old gentleman admitted with chest pain. Placed on a monitored bed [place] ruled out with serial cardiac enzymes subsequently underwent a nuclear stress test which was negative for stress-induced ischemia Hospital course: As above - Physical Exam Vitals/I&O's: Vital Signs Temp Pulse Resp BP Pulse Ox 97.6 F L 70 17 135/71 H 97 11/11/19 13:05 11/11/19 13:05 11/11/19 13:05 11/11/19 13:05 11/11/19 13:05 Oxygen Delivery Method Room Air Weight: 69.6 kg Body Mass Index (BMI) 24.0 Finger Stick Blood Glucose 123 Intake and Output for Last 24 Hours 11/09/19 11/10/19 11/11/19 23:59 23:59 23:59 Intake Total 1150 / 1150 360 / 360 Balance 1150 / 1150 360 / 360 Laboratory Results 11/10/19 16:13: Troponin I < 0.015 11/11/19 10:51: WBC 6.7, RBC 5.36, Hgb 15.8, Hct 49.6, MCV 92.5, MCH 29.5, MCHC 31.9 L, RDW Std Deviation 46.4 H, RDW Coeff of Meenu 13.7, Plt Count 159, MPV 10.0 11/11/19 10:51: Sodium 137, Potassium 4.6, Chloride 107, Carbon Dioxide 26.0, Anion Gap 4 L, BUN 31 H, Creatinine 1.77 H, Estim Creat Clear Calc 33.20, Est GFR (MDRD) Af Amer 48 L, Est GFR (MDRD) Non-Af 40 L, BUN/Creatinine Ratio 17.5, Glucose 183 H, Calcium 9.1 11/11/19 10:51: Magnesium 2.0 OBSV E&M: [id number] Observation care discharge
== END 2019-11-11 10:57 | disposition home or self-care (01) ==
LOC: ED 10:40 → PCU 12:22
PROVIDERS: Emergency Provider Physician Assistant; PCP Family Medicine; Visit Provider Internal Medicine
DX: R07.89 Other chest pain (principal); Z23 Encounter for immunization; I12.9 Hypertensive chronic kidney disease with stage 1 through stage 4 chronic kidney disease, or unspecified chronic kidney disease; I25.2 Old myocardial infarction; N18.30 Chronic kidney disease, stage 3 unspecified; E11.22 Type 2 diabetes mellitus with diabetic chronic kidney disease; I25.10 Atherosclerotic heart disease of native coronary artery without angina pectoris; K21.9 Gastro-esophageal reflux disease without esophagitis; E78.2 Mixed hyperlipidemia; J44.9 Chronic obstructive pulmonary disease, unspecified; I25.5 Ischemic cardiomyopathy; R42 Dizziness and giddiness; Z79.899 Other long term (current) drug therapy; Z79.82 Long term (current) use of aspirin; Z95.1 Presence of aortocoronary bypass graft; Z66 Do not resuscitate; Z87.891 Personal history of nicotine dependence
CPT/HCPCS: 36415; 71045; 78452; 80048; 83735; 84484; 85025; 85027; 93005; 93017; 99218; 99285; A9500; G0008; 90686; A4216; G0378; J2785

== ENCOUNTER 2020-04-16 14:00 | Outpatient (RCR) | payer MEDICARE, SELFPAY ==
[2020-02-17 11:09] VITALS: BMI 24.3
[2020-04-16] MEDS: COVID-19 VACC, MRNA(PFIZER)/PF 30 MCG/0.3 ML SYRINGE IM (13:26)
[2020-05-07] MEDS: COVID-19 VACC, MRNA(PFIZER)/PF 30 MCG/0.3 ML SYRINGE IM (13:32)
== END 2020-07-14 23:59 ==
LOC: IMMUN 14:00
PROVIDERS: PCP Family Medicine; Visit Provider Family Medicine
DX: Z23 Encounter for immunization (principal)
CPT/HCPCS: 0001A; 0002A; 91300

== ENCOUNTER → 2020-05-01 | Outpatient (CLI) | payer MEDICARE, SELFPAY ==
[2020-02-17 11:09] VITALS: BMI 24.3
[2020-05-01 15:41] LABS: Mucous, Urine 0 SEEN /hpf (<or=2+); Red Blood Cells-Urine 0 SEEN /hpf (0-5); Squamous Epithelial Cells - UA 0 SEEN /hpf (0-5)
[2020-05-01 16:03] LABS: Color, Urine Yellow (Yellow); Glucose, Dipstick Normal (Normal); Ketone-Dipstick Negative (Negative); Leukocyte Esterase-Dipstick 500 /ul (Negative); Nitrite-Dipstick Positive (Negative); Occult Blood-Urine 10 /ul (Negative); Protein-Dipstick 15 mg/dl (Negative); Urine Bilirubin Dipstick Negative (Negative); Urine Clarity Sl. Cloudy (Clear); Urine Urobilinogen Normal (Normal)
[2020-05-01 16:08] LABS: Cholesterol 191 mg/dL (200); High Density Lipoprotein 55 mg/dL; Triglycerides 134 mg/dL; Very Low Density Lipoprotein 27 mg/dL (5-40)
[2020-05-01 16:23] LABS: Microalbumin,Random Urine 81.1 mg/L (NO RANGE EST.); Microalbumin:Creatinine Ratio 32.4 mg/g CRE (<30 mg/g CRE)
[2020-05-01 16:56] LABS: Bacteria 2+ /hpf (None Seen); White Blood Cells 25-50 SEEN /hpf (0-5)
[2020-05-05 14:27] LABS: Iron 116 ug/dL (65-175); Iron Binding Capacity,Total 332 ug/dL (250-450)
== END | disposition home or self-care (01) ==
LOC: LABSPEC 15:10
PROVIDERS: PCP Family Medicine; Referring Provider Family Medicine; Visit Provider Family Medicine
DX: I25.10 Atherosclerotic heart disease of native coronary artery without angina pectoris (principal); I25.83 Coronary atherosclerosis due to lipid rich plaque; I12.9 Hypertensive chronic kidney disease with stage 1 through stage 4 chronic kidney disease, or unspecified chronic kidney disease; E11.22 Type 2 diabetes mellitus with diabetic chronic kidney disease; N18.30 Chronic kidney disease, stage 3 unspecified; E78.2 Mixed hyperlipidemia
CPT/HCPCS: 80061; 81001; 82043; 82570; 83036; 83540; 83550

== ENCOUNTER → 2020-11-03 | Outpatient (CLI) | payer MEDICARE, SELFPAY ==
[2020-11-03 11:45] LABS: Cholesterol 280 mg/dL (200); High Density Lipoprotein 52 mg/dL; Triglycerides 132 mg/dL; Very Low Density Lipoprotein 26 mg/dL (5-40)
== END | disposition home or self-care (01) ==
LOC: LABSPEC 10:34
PROVIDERS: PCP Family Medicine; Referring Provider Physician Assistant; Visit Provider Physician Assistant
DX: E78.2 Mixed hyperlipidemia (principal)
CPT/HCPCS: 80061

== ENCOUNTER → 2020-11-05 | Outpatient (CLI) | payer MEDICARE, SELFPAY ==
[2020-11-05 13:18] LABS: Potassium 4.8 mmol/L (3.5-5.1)
[2020-11-05 13:32] LABS: Hemoglobin A1c 6.3 % (3.8-5.6)
== END | disposition home or self-care (01) ==
LOC: LABSPEC 12:55
PROVIDERS: PCP Family Medicine; Referring Provider Physician Assistant; Visit Provider Physician Assistant
DX: E87.5 Hyperkalemia (principal); R73.9 Hyperglycemia, unspecified
CPT/HCPCS: 83036; 84132

== ENCOUNTER → 2022-01-05 | Outpatient (CLI) | payer MEDICARE, SELFPAY ==
[2022-01-05 13:15] LABS: Hematocrit 52.9 % (40-54); Hemoglobin 16.7 g/dL (13.0-16.5); Mean Corp Hgb Conc 31.6 g/dL (32-36); Mean Corpuscular Hgb 29.3 pg (27.0-32.0); Mean Corpuscular Volume 92.8 fL (80-94); Mean Platelet Vol. 10.9 fl (6.2-12.0); Platelet Count 214 K/mm3 (150-450); RBC Distribution Width SD 44.1 fl (35.1-43.9); White Blood Count 7.7 K/mm3 (4.4-11.0)
[2022-01-05 13:44] LABS: PTHIN 83.6 pg/mL (18.4-80.1)
[2022-01-05 13:51] LABS: Albumin, Serum 3.6 g/dL (3.2-5.0); BUN 31 mg/dL (7-18); BUN/Creat Ratio 13.6 RATIO (10-20); Calcium,Total 9.6 mg/dL (8.5-10.1); Chloride 102 mmol/L (98-107); Creatinine, Serum 2.28 mg/dL (0.70-1.30); EST Glomerular Filtration Rate 30 mL/min (>60); Est Glom Filt Rate - Afr Amer 36 mL/min (>60); Glucose 151 mg/dL (74-106); Phosphorus 2.6 mg/dL (2.5-4.9); Potassium 4.5 mmol/L (3.5-5.1); Sodium Level 136 mmol/L (136-145)
[2022-01-05 14:12] LABS: Protein, Urine (Random) 46.1 mg/dL (<11.9); Protein:Creat Ratio 153 mg/g CRE (0-200)
== END | disposition home or self-care (01) ==
PROVIDERS: PCP Family Medicine; Visit Provider Internal Medicine Nephrology
DX: N18.32 Chronic kidney disease, stage 3b (principal); E87.5 Hyperkalemia
CPT/HCPCS: 36415; 80069; 82570; 83970; 84156; 85027

== ENCOUNTER → 2022-02-16 | Outpatient (CLI) | payer MEDICARE, SELFPAY ==
[2022-02-16 11:03] LABS: Albumin, Serum 3.8 g/dL (3.2-5.0); BUN 28 mg/dL (7-18); BUN/Creat Ratio 12.5 RATIO (10-20); Calcium,Total 9.4 mg/dL (8.5-10.1); Chloride 109 mmol/L (98-107); Creatinine, Serum 2.24 mg/dL (0.70-1.30); EST Glomerular Filtration Rate 30 mL/min (>60); Est Glom Filt Rate - Afr Amer 37 mL/min (>60); Glucose 125 mg/dL (74-106); Phosphorus 2.8 mg/dL (2.5-4.9); Potassium 4.8 mmol/L (3.5-5.1); Sodium Level 140 mmol/L (136-145)
== END | disposition home or self-care (01) ==
LOC: LAB 10:15
PROVIDERS: PCP Family Medicine; Referring Provider Internal Medicine Nephrology; Visit Provider Internal Medicine Nephrology
DX: N18.32 Chronic kidney disease, stage 3b (principal)
CPT/HCPCS: 36415; 80069

== ENCOUNTER → 2022-08-31 | Outpatient (CLI) | payer MEDICARE, SELFPAY ==
[2022-08-31 07:27] LABS: Hematocrit 50.3 % (40-54); Hemoglobin 16.9 g/dL (13.0-16.5); Mean Corp Hgb Conc 33.6 g/dL (32-36); Mean Corpuscular Hgb 30.5 pg (27.0-32.0); Mean Corpuscular Volume 90.8 fL (80-94); Platelet Count 193 K/mm3 (150-450); RBC Distribution Width CV 13.2 % (11.6-14.6); RBC Distribution Width SD 44.6 fl (35.1-43.9); Red Blood Count 5.54 M/mm3 (4.6-6.2); White Blood Count 9.4 K/mm3 (4.4-11.0)
[2022-08-31 07:51] LABS: Albumin, Serum 3.8 g/dL (3.2-5.0); BUN 31 mg/dL (7-18); BUN/Creat Ratio 13.7 RATIO (10-20); Calcium,Total 9.3 mg/dL (8.5-10.1); Chloride 107 mmol/L (98-107); Creatinine, Serum 2.26 mg/dL (0.70-1.30); EST Glomerular Filtration Rate 30 mL/min (>60); Est Glom Filt Rate - Afr Amer 36 mL/min (>60); Glucose 147 mg/dL (74-106); Phosphorus 2.4 mg/dL (2.5-4.9); Potassium 4.7 mmol/L (3.5-5.1); Sodium Level 136 mmol/L (136-145)
[2022-08-31 07:55] LABS: PTHIN 147.5 pg/mL (18.4-80.1)
== END | disposition home or self-care (01) ==
PROVIDERS: PCP Family Medicine; Referring Provider Internal Medicine Nephrology; Visit Provider Internal Medicine Nephrology
DX: N18.32 Chronic kidney disease, stage 3b (principal)
CPT/HCPCS: 36415; 80069; 83970; 85027

== ENCOUNTER → 2023-07-13 | Outpatient (CLI) | payer MEDICARE, SELFPAY ==
[2023-07-13 09:39] LABS: Albumin, Serum 3.8 g/dL (3.2-5.0); BUN 38 mg/dL (7-18); BUN/Creat Ratio 14.8 RATIO (10-20); Calcium,Total 9.3 mg/dL (8.5-10.1); Chloride 106 mmol/L (98-107); Creatinine, Serum 2.56 mg/dL (0.70-1.30); EST Glomerular Filtration Rate 26 mL/min (>60); Est Glom Filt Rate - Afr Amer 31 mL/min (>60); Glucose 193 mg/dL (74-106); Phosphorus 2.5 mg/dL (2.5-4.9); Potassium 5.2 mmol/L (3.5-5.1); Sodium Level 134 mmol/L (136-145)
[2023-07-13 09:42] LABS: Protein, Urine (Random) 18.3 mg/dL (<11.9); Protein:Creat Ratio 96 mg/g CRE (0-200)
== END | disposition home or self-care (01) ==
LOC: LAB 08:07
PROVIDERS: PCP Family Medicine; Referring Provider Internal Medicine Nephrology; Visit Provider Internal Medicine Nephrology
DX: E11.22 Type 2 diabetes mellitus with diabetic chronic kidney disease (principal); N18.32 Chronic kidney disease, stage 3b
CPT/HCPCS: 36415; 80069; 82570; 84156

== ENCOUNTER → 2023-07-19 | Outpatient (CLI) | payer MEDICARE, SELFPAY ==
[2023-07-19 11:42] LABS: Albumin, Serum 3.8 g/dL (3.2-5.0); BUN 32 mg/dL (7-18); BUN/Creat Ratio 15.5 RATIO (10-20); Calcium,Total 9.7 mg/dL (8.5-10.1); Chloride 108 mmol/L (98-107); Creatinine, Serum 2.07 mg/dL (0.70-1.30); EST Glomerular Filtration Rate 33 mL/min (>60); Est Glom Filt Rate - Afr Amer 40 mL/min (>60); Glucose 117 mg/dL (74-106); Phosphorus 2.6 mg/dL (2.5-4.9); Potassium 5.1 mmol/L (3.5-5.1); Sodium Level 137 mmol/L (136-145)
== END | disposition home or self-care (01) ==
LOC: LAB 09:12
PROVIDERS: PCP Family Medicine; Visit Provider Internal Medicine Nephrology
DX: N18.32 Chronic kidney disease, stage 3b (principal)
CPT/HCPCS: 36415; 80069